=== PATIENT | female | born 1955 | race Caucasian/White ===

== ENCOUNTER → 2016-07-04 | Day surgery (SDC) | payer MEDICARE, MEDICAID ==
[~2016-07-04] VITALS: Ht 162.6 cm; Wt 90.0 kg
[~2016-07-04] MED LIST: ABIL5TAB6 PO; ALBU6.7H INH; AMLO5TAB2 PO; ARIP1TAB11 PO; ASPI1TAB69 PO; ATOR20TA15 PO; CALC667C PO; CIPR-9 PO; FLUO40CA PO; FLUT1SPR5 EACH NARE; FURO20TA PO; FURO40TA PO; HUMALOG SQ; HYDR-3535 PO; INSULIN HUMAN REGULAR 1,000 UNITS/10 ML VIAL SQ PRN; ISOS30TA15 PO; ISOS30TA3 PO; KLON2TAB PO; LACTATED RINGER'S 1000 ML IV SCH; LACTTAB8 PO; LANTUS2P SQ; LIPI20TA PO; LOPE7.5C PO; METF500T4 PO; METOPROLOL TARTRATE 25 MG TAB PO PRN; NOVOLOGSS SQ; ONDA1TAB16 PO; ONDA1TAB17 PO; PANT40TA3 PO; PERM5CRE11 TOPICAL; PHOS667C5 PO; RENATAB5 PO; SODIUM CHLORID 0.9% 500 ML IV SCH; SUCR1TAB PO; TOPA25TA8 PO; TOPI1TAB97 PO; VALT1TAB PO; ZOFR4TAB PO
[2016-07-04 09:32] VITALS: BP 137/65; PULSE 81; RESP 18; TEMP 97.9; O2SAT 97
[2016-07-04 10:05] LABS: AUTOMATED NEUTROPHIL # 11.4 TH/MM3 (1.8-7.7); BASOPHIL # 0.1 TH/MM3 (0-0.2); BASOPHIL % 0.5 % (0.0-2.0); EOSINOPHIL # 0.1 TH/MM3 (0-0.4); EOSINOPHIL % 0.6 % (0.0-4.0); HEMATOCRIT 38.5 % (35.0-46.0); HEMO FLAGS DIFF FINAL; LYMPH % 14.1 % (9.0-44.0); MEAN CELL VOLUME 93.6 FL (80.0-100.0); MEAN CORPUSCULAR HEMOGLOBIN 32.6 PG (27.0-34.0); MEAN CORPUSCULAR HGB CONC 34.8 % (32.0-36.0); MONO % 6.7 % (0.0-8.0); NEUT % 78.1 % (16.0-70.0); PLATELET COUNT 179 TH/MM3 (150-450); RED BLOOD COUNT 4.12 MIL/MM3 (4.00-5.30); RED CELL DISTRIBUTION WIDTH 14.3 % (11.6-17.2); WHITE BLOOD COUNT 14.5 TH/MM3 (4.0-11.0)
[2016-07-04 10:06] LABS: INTERNATIONAL NORMALIZED RATIO 0.9 RATIO; PROTHROMBIN TIME - PATIENT 10.2 SEC (9.8-11.6)
[2016-07-04 10:16] LABS: BACTERIA, URINE MANY /hpf; BLOOD, URINE MOD (NEG); COMMENT (UR) CULTURE INDICATED; CULTURE IF INDICATED CULTURE INDICATED; GLUCOSE,URINE TRACE mg/dL (NEG); HYALINE CAST, URINE 23 /lpf (RARE); KETONE, URINE NEG (NEG); MUCUS URINE MANY /lpf (OCC); NITRITE,URINE NEG (NEG); PH, URINE 5.5 (5.0-8.5); SQUAMOUS EPITHELIAL CELL URINE 21 /hpf (0-5); URINE COLOR YELLOW (YELLW/STRAW)
--- NOTE | 2016-07-04 10:23 | RADRPT ---
EXAM DATE/TIME: 07/04/2016 09:08 [facility] COMPARISON: No previous studies available for comparison. INDICATIONS: Pre-op Chest x-ray. Evaluate for pneumonia, pneumothorax, or communicable diseases. MEDICAL HISTORY: Diabetes mellitus type II. SURGICAL HISTORY: None. ENCOUNTER: Initial ACUITY: 1 day PAIN SCORE: 0/10 LOCATION: Chest FINDINGS: Dialysis catheter is in good position. Lungs are clear. Heart and pulmonary vascularity are normal. Portion of bony skeleton visualized unremarkable. CONCLUSION: 1. Dialysis catheter in good position. 2. Mild compensated cardiomegaly. Romario Pickering MD FACR on July 04, 2016 at 10:11 Board Certified Radiologist. This report was verified electronically.
[2016-07-04 10:26] LABS: BICARBONATE 27.7 MEQ/L (21.0-32.0)
[2016-07-04 10:36] LABS: POTASSIUM 4.6 MEQ/L (3.5-5.1)
== END | disposition home or self-care (01) ==
LOC: HCVO 08:20
PROVIDERS: ATTEND Surgery
DX: Z53.09 Procedure and treatment not carried out because of other contraindication (principal); I13.2 Hypertensive heart and chronic kidney disease with heart failure and with stage 5 chronic kidney disease, or end stage renal disease; I50.9 Heart failure, unspecified; N18.6 End stage renal disease; N39.0 Urinary tract infection, site not specified; Z16.20 Resistance to unspecified antibiotic; Z99.2 Dependence on renal dialysis
CPT/HCPCS: 71010; 80048; 81001; 82948; 85025; 85610; 87077; 87086; 87186; G0463; J1815; J7120; 99211

== ENCOUNTER → 2016-07-11 | Outpatient (CLI) | payer MEDICARE, MEDICAID ==
[~2016-07-11] MED LIST changes: -INSULIN HUMAN REGULAR 1,000 UNITS/10 ML VIAL SQ PRN; -LACTATED RINGER'S 1000 ML IV SCH; -METOPROLOL TARTRATE 25 MG TAB PO PRN; -SODIUM CHLORID 0.9% 500 ML IV SCH
[2016-07-11 10:37] LABS: HEMATOCRIT 37.2 % (35.0-46.0); MEAN CELL VOLUME 94.2 FL (80.0-100.0); MEAN CORPUSCULAR HEMOGLOBIN 31.9 PG (27.0-34.0); MEAN CORPUSCULAR HGB CONC 33.9 % (32.0-36.0); PLATELET COUNT 228 TH/MM3 (150-450); RED BLOOD COUNT 3.95 MIL/MM3 (4.00-5.30); REVIEW FLAG FINAL; WHITE BLOOD COUNT 11.7 TH/MM3 (4.0-11.0)
[2016-07-11 10:43] LABS: APTT (PATIENT) 30.1 SEC (24.3-30.1); PROTHROMBIN TIME - PATIENT 10.9 SEC (9.8-11.6)
[2016-07-11 11:07] LABS: BICARBONATE 35.8 MEQ/L (21.0-32.0); POTASSIUM 4.1 MEQ/L (3.5-5.1)
[2016-07-11 11:48] LABS: BACTERIA, URINE MOD /hpf; BLOOD, URINE TRACE (NEG); COMMENT (UR) CULTURE INDICATED; CULTURE IF INDICATED CULTURE INDICATED; GLUCOSE,URINE NEG (NEG); HYALINE CAST, URINE 15 /lpf (RARE); KETONE, URINE NEG (NEG); NITRITE,URINE NEG (NEG); SQUAMOUS EPITHELIAL CELL URINE 9 /hpf (0-5); URINE COLOR YELLOW (YELLW/STRAW)
--- NOTE | 2016-07-11 11:54 | RADRPT ---
EXAM DATE/TIME: 07/11/2016 11:33 [facility] COMPARISON: CHEST PA & LAT, April 16, 2016, 16:23. INDICATIONS : Evaluate for pneumonia, pneumothorax, and communicable diseases. Pre-op AV Fistula MEDICAL HISTORY : Diabetes mellitus type II. SURGICAL HISTORY : ENCOUNTER: Initial ACUITY: 1 day PAIN SCORE: 0/10 LOCATION: chest FINDINGS: PA and lateral views of the chest demonstrate the lungs to be symmetrically aerated without evidence of mass, infiltrate or effusion. Cardiomegaly slight interstitial prominence. The cardiomediastinal contours are unremarkable. Osseous structures are intact. CONCLUSION: Cardiomegaly and slight interstitial prominence. Blue Chen MD on July 11, 2016 at 11:52 Board Certified Radiologist. This report was verified electronically.
--- NOTE | 2016-07-12 19:49 | EKG ---
Date Performed: 07/11/2016 Time Performed: 10:27:32 PTAGE: 60 years EKG: Sinus rhythm LOW QRS VOLTAGE IN PRECORDIAL LEADS RIGHT BUNDLE BRANCH BLOCK Since previous tracing, no significant change noted ABNORMAL ECG PREVIOUS TRACING : 04/16/2016 15.35.08 DOCTOR: Casey Monteiro Interpretating Date/Time 07/12/2016 19:47:48
== END ==
LOC: CPRE 09:56
PROVIDERS: ATTEND Surgery
DX: Z01.810 Encounter for preprocedural cardiovascular examination (principal); Z01.811 Encounter for preprocedural respiratory examination; Z01.812 Encounter for preprocedural laboratory examination; N18.6 End stage renal disease
CPT/HCPCS: 36415; 71020; 80048; 81001; 85027; 85610; 85730; 87086; 93005

== ENCOUNTER 2016-08-11 06:25 | Day surgery (SDC) | payer MEDICARE, MEDICAID ==
[~2016-08-11] VITALS: Ht 162.6 cm; Wt 95.7 kg
[~2016-08-11 06:25] MED LIST changes: -ABIL5TAB6 PO; -ARIP1TAB11 PO; -CIPR-9 PO; -FURO20TA PO; -FURO40TA PO; -HUMALOG SQ; -ISOS30TA3 PO; -KLON2TAB PO; -LACTTAB8 PO; -LIPI20TA PO; -LOPE7.5C PO; -METF500T4 PO; -ONDA1TAB17 PO; -PANT40TA3 PO; -PERM5CRE11 TOPICAL; -PHOS667C5 PO; -TOPA25TA8 PO; -ZOFR4TAB PO
[2016-08-11] MEDS ORDERED: INSULIN HUMAN REGULAR 1,000 UNITS/10 ML VIAL SQ PRN (08:30)
[2016-08-11] MEDS ORDERED: POVIDONE IODINE 5% (ANTISEPSIS KIT) 4 APPLICATIONS EACH NARE PRN (08:30)
[2016-08-11] MEDS ORDERED: METOPROLOL TARTRATE 25 MG TAB PO PRN (08:30)
[2016-08-11] MEDS ORDERED: CHLORHEXIDINE GLUCONATE 2 % 1 PACK (2 CLOTHS) TOPICAL PRN (08:30)
[2016-08-11] MEDS ORDERED: LACTATED RINGER'S 1000 ML IV PRN (08:30)
[2016-08-11] MEDS ORDERED: SODIUM CHLORID 0.9% 500 ML IV PRN (08:30)
--- NOTE | 2016-08-11 08:52 | RADRPT ---
EXAM DATE/TIME: 08/11/2016 09:31 [facility] COMPARISON: CHEST PA & LAT, July 11, 2016, 11:33. INDICATIONS : Evaluate for pneumonia, pneumothorax, or communicable disease. Pre op AV fistula MEDICAL HISTORY : Diabetes mellitus type II. SURGICAL HISTORY : Port for diaylsis ENCOUNTER: Initial ACUITY: 1 day PAIN SCORE: 0/10 LOCATION: Bilateral chest FINDINGS: The heart is mildly enlarged. The lungs are clear. The patient dialysis catheters in good position. T he bony structures are grossly intact. CONCLUSION: 1. Cardiomegaly. Dialysis catheter in good position. Lungs are clear. Vito Pickering MD on August 11, 2016 at 8:50 Board Certified Radiologist. This report was verified electronically.
[2016-08-11] MEDS ORDERED: Hemodialysis Vas Acc Cath PRN Heparin 1000 unit/ml Flush IV FLUSH (09:45)
[2016-08-11] MEDS ORDERED: Hemodialysis Vas Access Cath PRN NS Lock Flush IV FLUSH (09:45)
[2016-08-11 09:47] VITALS: BP 136/64; PULSE 57; RESP 20; TEMP 97.8; O2SAT 95
[2016-08-11 09:55] LABS: BASOPHIL # 0.1 TH/MM3 (0-0.2); BASOPHIL % 0.6 % (0.0-2.0); EOSINOPHIL # 0.2 TH/MM3 (0-0.4); EOSINOPHIL % 1.7 % (0.0-4.0); HEMATOCRIT 32.4 % (35.0-46.0); HEMO FLAGS DIFF FINAL; LYMPH % 22.7 % (9.0-44.0); LYMPHOCYTE # 2.3 TH/MM3 (1.0-4.8); MEAN CELL VOLUME 92.4 FL (80.0-100.0); MEAN CORPUSCULAR HEMOGLOBIN 32.5 PG (27.0-34.0); MEAN CORPUSCULAR HGB CONC 35.1 % (32.0-36.0); MONO % 6.7 % (0.0-8.0); NEUT % 68.3 % (16.0-70.0); PLATELET COUNT 187 TH/MM3 (150-450); RED BLOOD COUNT 3.51 MIL/MM3 (4.00-5.30); RED CELL DISTRIBUTION WIDTH 14.5 % (11.6-17.2); WHITE BLOOD COUNT 10.2 TH/MM3 (4.0-11.0)
[2016-08-11 10:06] LABS: INTERNATIONAL NORMALIZED RATIO 0.9 RATIO; PROTHROMBIN TIME - PATIENT 10.1 SEC (9.8-11.6)
[2016-08-11 10:17] LABS: BICARBONATE 32.8 MEQ/L (21.0-32.0)
[2016-08-11 10:18] LABS: BACTERIA, URINE MOD /hpf; BLOOD, URINE TRACE (NEG); GLUCOSE,URINE NEG (NEG); HYALINE CAST, URINE 2 /lpf (RARE); KETONE, URINE NEG (NEG); NITRITE,URINE NEG (NEG); SQUAMOUS EPITHELIAL CELL URINE 5 /hpf (0-5); URINE COLOR LIGHT-YELLOW (YELLW/STRAW)
[2016-08-11 10:19] LABS: COMMENT (UR) CULTURE INDICATED; CULTURE IF INDICATED CULTURE INDICATED
[2016-08-11 10:24] LABS: POTASSIUM 2.9 MEQ/L (3.5-5.1)
[2016-08-11] MEDS ORDERED: POTASSIUM CHLOR 20 MEQ PREMIX 100 ML IV SCH (12:00)
[2016-08-11] MEDS ORDERED: HEPARIN SODIUM - IV 10,000 UNITS/10 ML VIAL ONE (13:45)
[2016-08-11 14:46] LABS: BICARBONATE 33.2 MEQ/L (21.0-32.0); POTASSIUM 3.6 MEQ/L (3.5-5.1)
[2016-08-13] MEDS ORDERED: PERM5CRE11 TOPICAL (07:49)
[2016-08-18] MEDS ORDERED: ARIP1TAB11 PO (06:15)
[2016-08-18] MEDS ORDERED: FURO40TA PO (11:00)
[2016-08-18] MEDS ORDERED: FURO20TA PO (11:00)
[2016-09-26] MEDS ORDERED: HUMALOG SQ (11:52)
== END 2016-08-18 09:44 | disposition home or self-care (01) ==
LOC: HSDC 06:25
PROVIDERS: ATTEND Surgery
DX: N18.6 End stage renal disease (principal); I12.0 Hypertensive chronic kidney disease with stage 5 chronic kidney disease or end stage renal disease; E11.9 Type 2 diabetes mellitus without complications; Z01.818 Encounter for other preprocedural examination; Z53.09 Procedure and treatment not carried out because of other contraindication
CPT/HCPCS: 71010; 80048; 81001; 82948; 85025; 85610; 87086; G0463; J1644; J3480; J7040; 99211

== ENCOUNTER 2016-08-13 07:25 | Emergency (ER) | payer MEDICARE, MEDICAID ==
[~2016-08-13] VITALS: Ht 162.6 cm; Wt 88.0 kg
[2016-08-13 07:35] VITALS: BP 144/66; PULSE 66; RESP 24; TEMP 97.8; O2SAT 98
[2016-08-13] MEDS ORDERED: PERM5CRE11 TOPICAL (07:49)
--- NOTE | 2016-08-13 07:49 | PD ---
HPI Chief Complaint: Skin Problem Time Seen by Provider: 07:44 Travel History International Travel<30 days: No Contact w/Intl Traveler<30days: No Traveled to known affect area: No History of Present Illness HPI 60-year-old female presents to the emergency department with an itchy rash to her bilateral upper extremities, upper back, abdomen, right breast 2 days. She did start using a new body soap from [employer] a few days ago and has now stopped using it with no resolution of symptoms. She also states her daughter has dogs and sleep in her bed and she doesn't know if maybe she is being bit by fleas or other bugs. No one else in the house has a rash like her. She denies fever, chills, nausea, vomiting. She took Benadryl last night with good relief of itching. No known aggravating factors. Allergies to latex, penicillin, sulfa. History of diabetes. No other modifying factors or associated signs and symptoms. PFSH Past Medical History Cancer: No Cardiovascular Problems: Yes (PVD, CHF, chol) Diabetes: Yes Endocrine: No Genitourinary: Yes (INCONTINENCE) Hepatitis: No Hiatal Hernia: No Immune Disorder: No Musculoskeletal: Yes (arthritis right leg and bilat hands) Neurologic: Yes (seizures-last one 10 yrs prior) Psychiatric: Yes (anxiety, depression) Reproductive: No Respiratory: No (COPD, asthma) Thyroid Disease: No ?: Not Past Surgical History Abdominal Surgery: No AICD: No Body Medical Devices: right upper chest port Cardiac Surgery: No (radial cath done several years ago-negative) Ear Surgery: No Endocrine Surgery: No Eye Surgery: Yes (GROWTH REMOVED A CHILD) Genitourinary Surgery: No Gynecologic Surgery: No Joint Replacement: No Oral Surgery: Yes (TONSILECTOMY) Pacemaker: No Thoracic Surgery: Yes (right upper chest port-dialysis, abscess removed from L breast) Social History Tobacco Use: No Substance Use: No Allergies-Medications (Allergen,Severity, Reaction): Coded Allergies: Latex (Verified Allergy, Severe, rash, 08/11/16) Penicillin (Verified Allergy, Severe, Rash, 08/11/16) Sulfa (Verified Allergy, Severe, itching, vomiting, 08/11/16) Reported Meds & Prescriptions Reported Meds & Active Scripts Active Elimite Topical (Permethrin) 5% Cream 1 Applic TOPICAL ONCE Reported Valtrex (Valacyclovir HCl) 1 Gm Tab 1,000 Mg PO HS Lantus Inj (Insulin Glargine) 1,000 Unit/10 Ml Vial 30 Units SQ HS Topiramate 25 Mg Tab 25 Mg PO DAILY Sucralfate 1 Gm Tab 1 Gm PO QID on empty stomach Aline-Yvonne (B-Complex W/ C & Folic Acid) 1 Tab 1 Tab PO DAILY Proventil Hfa 6.7 GM Inh (Albuterol Sulfate) 90 Mcg/Act Aer 2 Puff INH Q6H PRN Ondansetron (Ondansetron HCl) 4 Mg Tab 8 Mg PO Q6HR PRN Novolog Inj (Insulin Aspart) 100 Unit/Ml Inj 2-12 Units SQ ACHS PER SLIDING SCALE Isosorbide Dinitrate 30 Mg Tab 30 Mg PO DAILY Lortab (Hydrocodone-Acetaminophen) 10-325 Mg Tab 1 Tab PO Q8HR PRN Fluoxetine (Fluoxetine HCl) 40 Mg Cap 40 Cap PO DAILY Flonase Nasal [place] (Fluticasone Nasal [place]) 50 Mcg/Act [place] 50 Mcg EACH NARE DAILY Calcium Acetate (Calcium Acetate (Phosphate Bin) 667 Mg Cap 667 Mg PO WITH MEALS Atorvastatin (Atorvastatin Calcium) 20 Mg Tab 20 Mg PO HS Aspirin 81 Mg Tabdr 81 Mg PO DAILY Amlodipine (Amlodipine Besylate) 5 Mg Tab 5 Mg PO DAILY Review of Systems Except as stated in HPI: all other systems reviewed are Neg Physical Exam Narrative GENERAL: Well-nourished, well-developed female patient, in no acute distress; afebrile, nontoxic-appearing SKIN: Warm and dry. Generalized erythremic pimple-like rash to abdomen, upper back, bilateral upper extremity; some areas appear excoriated. No areas with cellulitic process noted. [id number] noted to the right chest. HEAD: Atraumatic. Normocephalic. EYES: Pupils equal and round. No scleral icterus. No injection or drainage. ENT: Mucosa pink and moist. Airway patent. NECK: Trachea midline. CARDIOVASCULAR: Regular rate and rhythm. No murmur appreciated.. RESPIRATORY: No accessory muscle use. Breath sounds clear and equal bilaterally. No retractions or tachypnea. GASTROINTESTINAL: Obese. MUSCULOSKELETAL: No obvious deformities. No clubbing. No cyanosis. No edema. NEUROLOGICAL: Awake and alert. Oriented 3. No obvious cranial nerve deficits. Motor grossly within normal limits. Normal speech. PSYCHIATRIC: Appropriate mood and affect; insight and judgment normal. Data Data Last Documented VS Vital Signs Date Time Temp Pulse Resp B/P Pulse Ox O2 Delivery O2 Flow Rate FiO2 08/13/16 07:35 97.8 66 24 144/66 98 Room Air MDM Medical Decision Making Medical Screen Exam Complete: Yes Emergency Medical Condition: Yes Medical Record Reviewed: Yes Differential Diagnosis Scabies, flea bites, contact dermatitis, hives Narrative Course 60-year-old female with itchy rash to bilateral upper extremities, right breast , abdomen, upper back. Rash is nonspecific but is consistent with a possible scabies rash. Patient is afebrile and nontoxic-appearing. She denies fever, chills, nausea, vomiting. She did start using a new body soap either day. I will prescribe Elimite cream for possible scabies rash. Instructed patient take Benadryl [id number] as directed and as needed for itch./Rash. Instructed patient to follow up with dermatology as needed. Patient verbalizes understanding and agreement with treatment plan. Patient is medically cleared and stable for discharge. Discussed reasons to return to the emergency department. Instructed patient to follow up with primary care provider. Patient agrees with treatment plan. The patients vital signs are stable and the patient is stable for outpatient follow-up and treatment. Patient discharged home, stable and in no acute distress. Diagnosis Primary Impression: Rash and nonspecific skin eruption Referrals: Head Librarian Primary Care Physician Patient Instructions: Acute Rash (ED), General Instructions, Scabies (ED) Additional Instructions: Elimite cream as directed; repeat in one week as needed Soaking in cool water or apply cool, wet washcloths to irritated areas to minimize itching Apply anti-itch creams, such as calamine lotion, to relieve pain and itching as needed Cocl-cwv-opgocrk antihistamines as needed and as directed to relieve allergic symptoms caused by scabies Wash all pillows, linens, blankets, etc. in hot water and dry in hot dryer Bag and all unwashable linens, [place] stuffed animals, etc. in a tightly sealed garbage bag for up to 2 weeks Follow-up with nuclear medical technologist Follow-up with primary care provider Return to the emergency department immediately with worsening of symptoms Med/Other Pt SpecificInfo: Prescription(s) given Scripts Permethrin Topical (Elimite Topical)5% Cream1 Applic TOPICAL ONCE #1 TUBE Ref 1 Prov:Barbra Woodruff 08/13/16 Disposition: 01 DISCHARGE HOME Condition: Stable Barbra Woodruff Aug 13, 2016 07:49
[2016-08-13] MEDS ORDERED: diphenhydrAMINE HCL 50 MG CAP PO ONE (08:15)
[2016-09-26] MEDS ORDERED: HUMALOG SQ (11:52)
== END 2016-08-13 08:30 | disposition home or self-care (01) ==
LOC: NEPK 07:25
DX: R21 Rash and other nonspecific skin eruption (principal); L29.9 Pruritus, unspecified; E11.9 Type 2 diabetes mellitus without complications; Z79.4 Long term (current) use of insulin; Z86.79 Personal history of other diseases of the circulatory system; Z87.448 Personal history of other diseases of urinary system; Z87.39 Personal history of other diseases of the musculoskeletal system and connective tissue; Z86.69 Personal history of other diseases of the nervous system and sense organs
CPT/HCPCS: 99282

== ENCOUNTER 2016-08-18 05:07 | Day surgery (SDC) | payer MEDICARE, MEDICAID ==
[~2016-08-18] VITALS: Ht 154.9 cm; Wt 93.2 kg
[~2016-08-18 05:07] MED LIST changes: +PERM5CRE11 TOPICAL
[2016-08-18 05:51] VITALS: BP 129/79; PULSE 61; RESP 18; TEMP 97.9; O2SAT 93
[2016-08-18 05:54] LABS: AUTOMATED NEUTROPHIL # 8.4 TH/MM3 (1.8-7.7); BASOPHIL % 0.3 % (0.0-2.0); EOSINOPHIL # 0.2 TH/MM3 (0-0.4); EOSINOPHIL % 1.5 % (0.0-4.0); HEMATOCRIT 33.1 % (35.0-46.0); HEMO FLAGS DIFF FINAL; LYMPH % 20.3 % (9.0-44.0); LYMPHOCYTE # 2.4 TH/MM3 (1.0-4.8); MEAN CELL VOLUME 93.5 FL (80.0-100.0); MEAN CORPUSCULAR HEMOGLOBIN 32.2 PG (27.0-34.0); MEAN CORPUSCULAR HGB CONC 34.5 % (32.0-36.0); MONO % 6.6 % (0.0-8.0); NEUT % 71.3 % (16.0-70.0); PLATELET COUNT 193 TH/MM3 (150-450); RED BLOOD COUNT 3.54 MIL/MM3 (4.00-5.30); RED CELL DISTRIBUTION WIDTH 14.5 % (11.6-17.2); WHITE BLOOD COUNT 11.8 TH/MM3 (4.0-11.0)
[2016-08-18 06:06] LABS: BICARBONATE 35.6 MEQ/L (21.0-32.0); POTASSIUM 3.6 MEQ/L (3.5-5.1)
[2016-08-18] MEDS ORDERED: ARIP1TAB11 PO (06:15)
[2016-08-18] MEDS ORDERED: FURO40TA PO (11:00)
[2016-08-18] MEDS ORDERED: FURO20TA PO (11:00)
[2016-09-26] MEDS ORDERED: HUMALOG SQ (11:52)
== END 2016-08-18 10:00 | disposition home or self-care (01) ==
LOC: HDIC 05:07 → HDOC 05:07
PROVIDERS: ATTEND Surgery
DX: N18.6 End stage renal disease (principal); I12.0 Hypertensive chronic kidney disease with stage 5 chronic kidney disease or end stage renal disease; J44.9 Chronic obstructive pulmonary disease, unspecified; I73.9 Peripheral vascular disease, unspecified; E11.22 Type 2 diabetes mellitus with diabetic chronic kidney disease; Z79.4 Long term (current) use of insulin; Z53.09 Procedure and treatment not carried out because of other contraindication
CPT/HCPCS: 80048; 85025

== ENCOUNTER 2016-08-18 09:56 | Inpatient (IN) | payer MEDICARE, MEDICAID ==
[~2016-08-18] VITALS: Ht 162.6 cm; Wt 107.8 kg
[~2016-08-18 09:56] MED LIST changes: +ARIP1TAB11 PO
[2016-08-18 09:59] VITALS: BP 136/60; PULSE 62; RESP 17; TEMP 98.5; O2SAT 96
[2016-08-18 10:07] VITALS: BP 130/62; PULSE 63; RESP 19; TEMP 97.8; O2SAT 92
[2016-08-18 10:12] VITALS: BP 130/62; PULSE 63; RESP 19; TEMP 97.9; O2SAT 93
--- NOTE | 2016-08-18 10:47 | RADRPT ---
EXAM DATE/TIME: 08/18/2016 10:33 [facility] COMPARISON: No previous studies available for comparison. INDICATIONS : Left foot pain after was injury during wheelchair transportation. MEDICAL HISTORY : Hypertension. Chronic obstructive pulmonary disease. Diabetes mellitus type II. Asthma. Smoker. C HF. SURGICAL HISTORY : None. ENCOUNTER: Initial ACUITY: 1 month PAIN SCORE: 10/10 LOCATION: Left entire foot. FINDINGS: There is diffuse decreased bone mineralization. No fractures are seen. There is periosteal reaction a long the calcaneus and findings suggest possible heel cutaneous ulcer. The possibility of osteomyelit is is not excluded. CONCLUSION: Findings are concerning for possible osteomyelitis of the calcaneus with overlying ulceration. Micha Tobar MD on August 18, 2016 at 10:45 Board Certified Radiologist. This report was verified electronically.
[2016-08-18] MEDS ORDERED: FURO20TA PO (11:00)
[2016-08-18] MEDS ORDERED: FURO40TA PO (11:00)
--- NOTE | 2016-08-18 11:03 | PD ---
HPI Chief Complaint: Complaint Time Seen by Provider: 10:02 Travel History International Travel<30 days: No Contact w/Intl Traveler<30days: No Traveled to known affect area: No History of Present Illness HPI The patient's 60 years old. She arrives stating that she was on dialysis week ago. She reports since then she has become quite swollen so much so that she cannot fit into her wedding dress. Essie has not been helping her produce urine. She complains of swelling in the legs evidently worse over the past few days. She also complains of pain in the right foot. She has an open wound on the plantar aspect of the L foot. It's constant and worse with palpation. She' s had no fever. PFSH Past Medical History Cancer: Yes Cardiovascular Problems: Yes (PVD, CHF, chol) Diabetes: Yes Endocrine: No Gastrointestinal Disorders: No (ULCER, GERD) Genitourinary: Yes (INCONTINENCE) Hepatitis: No Hiatal Hernia: No Hypertension: Yes (on meds) Immune Disorder: No Musculoskeletal: Yes (arthritis right leg and bilat hands) Neurologic: Yes (seizures-last one 10 yrs prior) Psychiatric: Yes (anxiety, depression) Reproductive: No Respiratory: No (COPD, asthma) Thyroid Disease: No Past Surgical History Abdominal Surgery: No AICD: No Body Medical Devices: right upper chest port Cardiac Surgery: No (radial cath done several years ago-negative) Ear Surgery: No Endocrine Surgery: No Eye Surgery: Yes (GROWTH REMOVED A CHILD) Genitourinary Surgery: No Gynecologic Surgery: No Joint Replacement: No Oral Surgery: Yes (TONSILECTOMY) Pacemaker: No Thoracic Surgery: Yes (right upper chest port-dialysis, abscess removed from L breast) Social History Alcohol Use: No Tobacco Use: Yes Substance Use: No Allergies-Medications (Allergen,Severity, Reaction): Coded Allergies: Latex (Verified Allergy, Severe, rash, 08/11/16) Penicillin (Verified Allergy, Severe, Rash, 08/11/16) Sulfa (Verified Allergy, Severe, itching, vomiting, 08/11/16) Reported Meds & Prescriptions Reported Meds & Active Scripts Active Reported Furosemide 40 Mg Tab 40 Mg PO BID Furosemide 20 Mg Tab 20 Mg PO BID Aripiprazole 5 Mg Tab 5 Mg PO DAILY Valtrex (Valacyclovir HCl) 1 Gm Tab 1,000 Mg PO HS Topiramate 25 Mg Tab 25 Mg PO DAILY Sucralfate 1 Gm Tab 1 Gm PO QID on empty stomach Proventil Hfa 6.7 GM Inh (Albuterol Sulfate) 90 Mcg/Act Aer 2 Puff INH Q6H PRN Ondansetron (Ondansetron HCl) 4 Mg Tab 8 Mg PO Q6HR PRN Novolog Inj (Insulin Aspart) 100 Unit/Ml Inj 2-12 Units SQ ACHS PER SLIDING SCALE Isosorbide Dinitrate 30 Mg Tab 30 Mg PO DAILY Lortab (Hydrocodone-Acetaminophen) 10-325 Mg Tab 1 Tab PO Q8HR PRN Aspirin 81 Mg Tabdr 81 Mg PO DAILY Amlodipine (Amlodipine Besylate) 5 Mg Tab 5 Mg PO DAILY Review of Systems Except as stated in HPI: all other systems reviewed are Neg General / Constitutional: No: Fever Skin: Positive Rash, Positive Lesions Physical Exam Narrative GENERAL: 60-year-old female well-nourished well-developed no acute distress SKIN: Focused skin assessment warm/dry. Approximate 5 cm lesion about the plantar aspect of the left fiber machine tender with minimal discharge and surrounding erythema. HEAD: Atraumatic. Normocephalic. EYES: Pupils equal and round. No scleral icterus. No injection or drainage. ENT: No nasal bleeding or discharge. Mucous membranes pink and moist. NECK: Trachea midline. No JVD. CARDIOVASCULAR: Regular rate and rhythm. No murmur appreciated. RESPIRATORY: No accessory muscle use. Clear to auscultation. Breath sounds equal bilaterally. GASTROINTESTINAL: Abdomen soft, non-tender, nondistended. Hepatic and splenic margins not palpable. MUSCULOSKELETAL: No obvious deformities. No clubbing. No cyanosis. 1+ pitting edema bilateral lower extremities. NEUROLOGICAL: Awake and alert. No obvious cranial nerve deficits. Motor grossly within normal limits. Normal speech. PSYCHIATRIC: Appropriate mood and affect; insight and judgment normal. Data Data Last Documented VS Vital Signs Date Time Temp Pulse Resp B/P Pulse Ox O2 Delivery O2 Flow Rate FiO2 08/18/16 10:12 97.9 63 19 130/62 93 Room Air VSS Orders Foot, Complete ([id number]) (08/18/16 ) Blood Culture (08/18/16 11:01) Wound Culture And Gram Stain (08/18/16 11:01) Iv Access Insert/Monitor (08/18/16 11:01) Clindamycin Inj (Cleocin Inj) (08/18/16 11:15) Admit Order (Ed Use Only) (08/18/16 11:12) MDM Medical Decision Making Medical Screen Exam Complete: Yes Emergency Medical Condition: Yes Medical Record Reviewed: Yes Differential Diagnosis Renal insufficiency, renal failure, anemia, osteomyelitis, cellulitis Narrative Course WBC from 540AM WBC 11.8 HGB 11.4 HCT 33.1 PLT 193 BMP from 540AM BUN 34 Cr 1.59 Glucose 67 Last 24 hours Impressions Foot X-Ray 08/18/16 0000 Signed Impressions: Service Date/Time: Thursday, August 18, 2016 10:33 - CONCLUSION: Findings are concerning for possible osteomyelitis of the calcaneus with overlying ulceration. Micha Tobar MD The patient will be admitted for IV antibiotics due to possible osteomyelitis of the left foot. d/w Dr Mckinney. Diagnosis Primary Impression: Osteomyelitis of foot Qualified Code: M86.8X7 - Other osteomyelitis of left foot Admitting Information Admitting Physician Requests: Admit Vito Patel MD Aug 18, 2016 11:03
[2016-08-18] MEDS ORDERED: CLINDAMYCIN INJ 900 MG in SODIUM CHLORIDE 0.9% INJ 100 ML IV ONE (11:15)
[2016-08-18] MEDS ORDERED: VANCOMYCIN INJ 1,750 MG in SODIUM CHLORID 0.9% 500 ML INJ 500 ML IV ONE (12:15)
[2016-08-18 13:34] VITALS: BP 112/59; PULSE 76; RESP 19; O2SAT 95
--- NOTE | 2016-08-18 13:34 | HHI.HP ---
[facility] Service Family Medicine Primary Care Physician Amber Rodriguez MD Admission Diagnosis L Foot Osteomyelitis Diagnoses: Chief Complaint: wound of left foot International Travel<30 Days: No Contact w/Intl Traveler<30days: No Known Affected Area: No History of Present Illness Patient is a 60 year old female with history of ESRD and diabetes who initially presented to ED for evaluation of generalized edema and now admitted for possible left calcaneus osteomyelitis. Patient is a poor historian. States that she has been getting dialysis at [facility]; however they told her that she would not need dialysis anymore. Last HD was on ThursdayAugust 12. However she feels like she is "blowing up again" secondary to fluid retention. Endorses worsening lower extremity edema. Work up in the ED showed that her renal function is actually stable with creatinine of 1.59. Electrolytes were within normal limits ; however it was noted that patient has a large ulcer on her left heel. X-ray was obtained and significant for possible osteomyelitis of calcaneus. Patient reports that ulcer has been there for 2 years. She follows up with Dr. Sun in [place] for wound care and has an appointment on for her first hyperbaric chamber treatment. States that ulcer looks better compared to the past since she has been going to wound care. Denies active drainage or bleeding from the ulcer. Pain in her heel is controlled. No associated symptoms such as fever, chills, LE redness, numbness, or weakness. She is able to ambulates around with a cane. Review of Systems Constitutional: DENIES: Fever, Chills, Change in appetite Respiratory: DENIES: Wheezing, Sputum production, Shortness of breath Cardiovascular: COMPLAINS OF: Lower Extremity Edema, DENIES: Chest pain, Palpitations, Syncope Gastrointestinal: DENIES: Black stools, Bloody stools, Diarrhea, Nausea, Vomiting Integumentary: COMPLAINS OF: Rash Past Family Social History Past Medical History PVD DM ESRD CHF last echo was a few months ago but does not recall what the EF was HLD GERD HTN Back arthritis Seizure 10 years ago COPD Anxiety Depression Past Surgical History Tonsillectomy AV fistula L. Breast abscess I&D Reported Medications Furosemide 40 Mg Tab 40 Mg PO BID Furosemide 20 Mg Tab 20 Mg PO BID Aripiprazole 5 Mg Tab 5 Mg PO DAILY Valtrex (Valacyclovir HCl) 1 Gm Tab 1,000 Mg PO HS Topiramate 25 Mg Tab 25 Mg PO DAILY Sucralfate 1 Gm Tab 1 Gm PO QID on empty stomach Proventil Hfa 6.7 GM Inh (Albuterol Sulfate) 90 Mcg/Act Aer 2 Puff INH Q6H PRN Ondansetron (Ondansetron HCl) 4 Mg Tab 8 Mg PO Q6HR PRN Novolog Inj (Insulin Aspart) 100 Unit/Ml Inj 2-12 Units SQ ACHS PER SLIDING SCALE Levemir but unsure about the dose Isosorbide Dinitrate 30 Mg Tab 30 Mg PO DAILY Lortab (Hydrocodone-Acetaminophen) 10-325 Mg Tab 1 Tab PO Q8HR PRN Aspirin 81 Mg Tabdr 81 Mg PO DAILY Amlodipine (Amlodipine Besylate) 5 Mg Tab 5 Mg PO DAILY Allergies: Coded Allergies: Latex (Verified Allergy, Severe, rash, 08/11/16) Penicillin (Verified Allergy, Severe, Rash, 08/11/16) Sulfa (Verified Allergy, Severe, itching, vomiting, 08/11/16) Family History Alzheimer Colon cancer Kidney disease Social History Smokes 5 cigarettes per day since age 15 Denies EtOH or illicit drug use On disability. Lives with niece and nephew in [place] Physical Exam Vital Signs Vital Signs Date Time Temp Pulse Resp B/P Pulse Ox O2 Delivery O2 Flow Rate FiO2 08/18/16 10:12 97.9 63 19 130/62 93 Room Air 08/18/16 10:12 61 08/18/16 10:07 97.8 63 19 130/62 92 08/18/16 09:59 98.5 62 17 136/60 96 Room Air Physical Exam GENERAL: This is a well-nourished, well-developed obese female, in no apparent distress. Appears comfortable lying in bed. SKIN: Diffuse papular rash on upper abdomen. HEAD: Atraumatic. Normocephalic. EYES: Pupils equal round and reactive. Extraocular motions intact. No scleral icterus. No injection or drainage. ENT: Nose without bleeding, purulent drainage or septal hematoma. Throat without erythema, tonsillar hypertrophy or exudate. Uvula midline. Airway patent. NECK: Trachea midline. No JVD or lymphadenopathy. Supple. CARDIOVASCULAR: Regular rate and rhythm without murmurs, gallops, or rubs. RESPIRATORY: Clear to auscultation. Breath sounds equal bilaterally. No wheezes , rales, or rhonchi. GASTROINTESTINAL: Abdomen soft, non-tender, nondistended. No hepato-splenomegaly , or palpable masses. No guarding. MUSCULOSKELETAL: Large 5 x 7cm swallow ulceration on left heel with two small 1 cm deeper ulcers at the inferior aspect of heel. No active drainage or bleeding. Sensation and motor grossly intact. NEUROLOGICAL: Awake and alert. Cranial nerves II through XII intact. Five out of 5 muscle strength in all muscle groups. Normal speech. Laboratory Date/Time Procedure Status Source Growth 08/18/16 12:36 Gram Stain Received Wound Foot Pending 08/18/16 12:36 Wound Culture Received Wound Foot Pending 08/18/16 12:10 Aerobic Blood Culture Received Blood Peripheral Pending 08/18/16 12:10 Anaerobic Blood Culture Received Blood Peripheral Pending Imaging Foot X-Ray 08/18/16 0000 Signed Impressions: Service Date/Time: Thursday, August 18, 2016 10:33 - CONCLUSION: Findings are concerning for possible osteomyelitis of the calcaneus with overlying ulceration. Micha Tobar MD Septic Shock Reassessment Heart: Regular rate and rhythm Lungs: Clear Skin: Warm Capillary Refill: <2 seconds Assessment and Plan Assessment and Plan Patient is a 60 year old female with history of ESRD and diabetes who is admitted for evaluation of osteomyelitis of left calcaneus. Code Status FULL Discussed Condition With w/d/w Dr. Braun and medicine team Problem List: (1) Osteomyelitis of foot Status: Acute Plan: Patient with history of chronic left heel wound x 2 years. Has been seeing Dr. Sun in [place] for wound care. Reports that she was supposed to start hyperbaric chamber tomorrow. X-ray in ED concerning for possible osteomyelitis of calcaneus, thus medicine team was called to admit patient for IV antibiotics and further evaluation. Mild leukocytosis of 11.8 with slight left shift. Otherwise VSSAF. -MRI of left foot -ESR pending -Patient given Clindamycin and Vancomycin in ED. Will hold off on continue antibiotics until evaluation from ID and podiatry -Wound and blood cultures pending -Pain control with Lortab 10mg Q8hrs and Morphine 2mg Q3hr prn (2) ESRD (end stage renal disease) on dialysis Status: Acute Plan: BUN/creatinine 34/1.59 on admission. Patient reports history of ESRD on hemodialysis. Last HD was last Thursday; however reports that her freight brake operator told her she did not need dialysis anymore. -Avoid nephrotoxic agents -Renally dose medications -Monitor renal function -Consider nephrology consult if renal function worsens (3) Hypertension Status: Chronic Plan: BP stable. Continue home antihypertensives (4) COPD (chronic obstructive pulmonary disease) Status: Chronic Plan: No evidence of exacerbation. O2 stable on room air. Lung exam unremarkable. -Abluterol Q4h prn -Smoking cessation counseling provided (5) Diabetes Status: Chronic Plan: History of T2DM; states that she is on Levemir (unsure about the dose) and Novolog sliding scale at home. Serum glucose on admission 67. Reports that her glucoses have been running low for the past couple of weeks. -Accuchecks -Start D5 1/2 NS at 75cc/hr since patient will be NPO -SSI prn (6) CHF (congestive heart failure) Status: Chronic Plan: Patient reports history of CHF; had ECHO several months ago but unsure what her EF was. No evidence of exacerbation at this time. -Continue to monitor -Caution with IVFs -Continue home dose of Lasix 60mg po BID (7) Nutrition, metabolism, and development symptoms Status: Acute Plan: Diet: NPO. Advance to diabetic diet Fluid: D5 1/2 NS at 75cc/hr given glucose of 67 on admission Electrolytes: WNL. Continue to monitor (8) Prophylactic measure Status: Acute Plan: SCDs bilaterally Hold off on chemical anticoagulation until podiatry's evaluation. May need debridement and possible biopsy Physician Certification 2 Midnight Certification Type: Admission for Inpatient Services Order for Inpatient Services The services are ordered in accordance with Medicare regulations or non- Medicare payer requirements, as applicable. In the case of services not specified as inpatient-only, they are appropriately provided as inpatient services in accordance with the 2-midnight benchmark. Estimated LOS (days): 4 4 days is the estimated time the patient will need to remain in the hospital, assuming treatment plan goals are met and no additional complications. Post-Hospital Plan: Not yet determined Problem Qualifiers (1) Osteomyelitis of foot: Qualified Code: M86.8X7 - Other osteomyelitis of left foot Cheyenne Crockett MD R3 Aug 18, 2016 13:33
[2016-08-18] MEDS ORDERED: SODIUM CHLOR 0.45% 1000 ML INJ 1,000 ML IV SCH (14:14)
[2016-08-18] MEDS ORDERED: ONDANSETRON HCL 4 MG/2 ML VIAL IVP PRN (14:15)
[2016-08-18] MEDS ORDERED: NALOXONE HCL 0.4 MG/ML AMP IV PRN (14:15)
[2016-08-18] MEDS ORDERED: SODIUM CHLORIDE 0.9% FLUSH 10 ML FLUSH IV FLUSH PRN (14:15)
[2016-08-18] MEDS ORDERED: BISACODYL 10 MG SUPP RECTAL PRN (14:15)
[2016-08-18] MEDS ORDERED: ACETAMINOPHEN 325 MG TAB PO PRN (14:15)
[2016-08-18] MEDS ORDERED: DEXTROSE 50% IN WATER 50 ML VIAL(D50) IV PUSH PRN (14:30)
[2016-08-18] MEDS ORDERED: DEXT 5%-NACL 0.45% 1000 ML INJ 1,000 ML IV SCH (14:30)
[2016-08-18] MEDS ORDERED: GLUCAGON 1 MG/ML VIAL OTHER PRN (14:30)
[2016-08-18] MEDS ORDERED: MORPHINE SULFATE 4 MG/ML INJ IV PUSH PRN (14:30)
[2016-08-18] MEDS ORDERED: RESP: ALBUTEROL 2.5 MG/3 ML NEB (PRN) NEB (14:45)
[2016-08-18] MEDS: INSULIN ASPART SUPPLEMENTAL SCALE SQ SCH ×2 (16:00→21:00)
[2016-08-18 16:37] VITALS: BP 123/58; PULSE 63; RESP 19; O2SAT 94
[2016-08-18] MEDS ORDERED: GADOBENATE DIM PF 529 MG/ML 20ML VIAL (for RAD MRI) IV ONE (18:47)
--- NOTE | 2016-08-18 19:24 | RADRPT ---
EXAM DATE/TIME: 08/18/2016 18:17 [facility] COMPARISON: FOOT LEFT COMPLETE ([id number]), August 18, 2016, 10:33. INDICATIONS : Osteomyelitis. Ulcer on heel of left foot for three years. CONTRAST: 18 cc MultiHance (gadobenate) IV MEDICAL HISTORY : Diabetes mellitus type 2. Hypertension. Renal failure, acute. Seizure. SURGICAL HISTORY : Tonsillectomy. Port. ENCOUNTER: Initial ACUITY: 1 day PAIN SCORE: 0/10 LOCATION: Left Foot. TECHNIQUE: Multiplanar, multisequence MRI examination was performed without contrast and after th e intravenous administration of gadolinium. FINDINGS: Moderate motion artifact is present. There is marked soft-tissue swelling. There is a large ulcer on the heel with marked edema in the calcaneus. The bone does appear to be partially ex posed. Findings would be consistent with a calcaneal osteomyelitis. There is generalized edema throughout the remainder of the foot without obvious marrow changes of ost eomyelitis. CONCLUSION: Marrow edema in the calcaneus associated with the large calcaneal ulcer with very lit tle if any skin covering evident. The patient has a significant pes planus deformity as well. Findin gs would be consistent with a osteomyelitis. Neurotrophic foot may also contribute to this process. Romario Pickering MD FACR on August 18, 2016 at 19:13 Board Certified Radiologist. This report was verified electronically.
[2016-08-18 20:00] VITALS: BP 149/65; PULSE 61; RESP 18; TEMP 97.1; O2SAT 98
[2016-08-18] MEDS: valACYclovir HCL 500 MG TAB PO SCH (21:48)
[2016-08-18] MEDS: FUROSEMIDE 40 MG TAB PO SCH (21:49)
[2016-08-18] MEDS: FUROSEMIDE 20 MG TAB PO SCH (21:49)
[2016-08-18] MEDS: SUCRALFATE 1 GM TAB PO SCH (21:49)
[2016-08-18] MEDS: SODIUM CHLOR 0.9% 1000 ML INJ 1,000 ML IV SCH (21:56)
[2016-08-18] MEDS: SODIUM CHLORIDE 0.9% FLUSH 10 ML FLUSH IV FLUSH SCH (21:56)
[2016-08-18] MEDS: ALPRAZolam 1 MG TAB PO PRN (22:46)
[2016-08-18] MEDS: ACETAMINOPHEN/HYDROcodone 325 MG/10 MG TAB PO PRN (22:46)
[2016-08-19] VITALS (7 sets, daily range): BP systolic 98–123; BP diastolic 55–66; PULSE 50–90; RESP 16–20; TEMP 96.6–97.7; O2SAT 86–98
[2016-08-19] MEDS: INSULIN ASPART SUPPLEMENTAL SCALE SQ SCH ×4 (05:51→21:12)
--- NOTE | 2016-08-19 07:28 | HHI.FPPN ---
Subjective Remarks Areli Kat is a 60yo lady with ESRD on dialysis, DM II, and chronic left heel ulcer admitted for suspected osteomyelitis of left heel. She initially presented to ED for worsening LE edema and concern for worsening renal function. Work up for this was reassuring, but evaluation of left heel wound revealed suspected osteomyelitis of left calcaneus. She has chronic ulcer of left heel x 2 years for which she follows up with Dr Sun in [place]. She denies any drainage, pain, fever, redness of skin. For further details, please see resident H&P. This morning, she reports continued swelling of her lower extremities. She denies SOB, chest pain. ROS: No fevers, no chills. + edema. No SOB, no chest pain. + left foot pain. All other systems reviewed are negative. PMH/PSxH/SocHx/FamHx: Per resident H&P. Significant for: PVD, ESRD, DM II, CHF ( unknown EF). Chronic wound left heel. HTN, COPD, anxiety ,depression. AV fistula ; I & D of left breast abscess. Fam hx of alzheimer disease, colon CA and kidney disease. 5 cigarettes per day, x 45 years. No alcohol or recreational drug use. Objective Vitals Vital Signs Date Time Temp Pulse Resp B/P Pulse Ox O2 Delivery O2 Flow Rate FiO2 08/19/16 00:00 97.2 90 117/66 98 08/18/16 23:46 18 08/18/16 20:00 97.1 61 18 149/65 98 08/18/16 16:37 63 19 123/58 94 Room Air 08/18/16 13:34 76 19 112/59 95 Room Air 08/18/16 10:12 97.9 63 19 130/62 93 Room Air 08/18/16 10:12 61 08/18/16 10:07 97.8 63 19 130/62 92 08/18/16 09:59 98.5 62 17 136/60 96 Room Air Objective Remarks GENERAL: in NAD, no resp distress, nontoxic. Sitting comfortably in chair. HEENT: NCAT, EOMI, no scleral icterus, no conjunctival injection. MMM. Poor dentition. NECK: Supple, no meningeal signs. CV: RRR, S1 S2. No murmurs CHEST/PULM: Good air movement. CTAB. No crackles. ABD/GI: +BS, soft, nondistended, nontender. Obese. EXT: 1+ pitting edema to mid mejia. Left heel as below. NEURO: Awake, alert. Normal muscle tone. SKIN: No rash, no jaundice. Large 5 x 7cm swallow ulceration on left heel with two small 1 cm deeper ulcers at the inferior aspect of heel. No active drainage or bleeding. Sensation and motor grossly intact. PSYCH: Awake, alert. Speech fluent. Does not appear to respond to internal stimuli. A/P Assessment and Plan Patient is a 60 year old female with history of ESRD and diabetes who is admitted for evaluation of osteomyelitis of left calcaneus. Attending Attestation Patient seen, examined, and discussed with resident team. The patient has been seen and examined. The chart and all resident notes have been reviewed. I agree that inpatient care is appropriate and that a two midnight stay is expected for the reasons documented in the resident history and physical. I have discussed this with the resident and certify the resident s order for inpatient admission. Problem List: (1) Osteomyelitis of foot Status: Chronic Plan: Patient with history of chronic left heel wound x 2 years. Has been seeing Dr. Sun in [place] for wound care. Reports that she was supposed to start hyperbaric chamber tomorrow. X-ray in ED concerning for possible osteomyelitis of calcaneus, thus medicine team was called to admit patient for IV antibiotics and further evaluation. Mild leukocytosis of 11.8 with slight left shift. -MRI of left foot demonstrates osteo of calcaneus. -ESR elevated. -Patient given Clindamycin and Vancomycin in ED. Will hold off on continue antibiotics until evaluation from ID and podiatry -Wound and blood cultures pending -Pain control with Lortab 10mg Q8hrs and Morphine 2mg Q3hr prn Records have been requested from recent ID doctor, Dr Wolf, and from wound care doctor, Dr Sun (2) ESRD (end stage renal disease) on dialysis Status: Chronic Plan: BUN/creatinine 34/1.59 on admission. Patient reports history of ESRD on hemodialysis. Last HD was last Thursday (08/12/16); however reports that her mangle operator garments told her she did not need dialysis anymore. -Avoid nephrotoxic agents -Renally dose medications -Monitor renal function -Consider nephrology consult if renal function worsens. -Will attempt to contact dialysis center to confirm patient's story regarding dialysis. (3) Hypertension Status: Chronic Plan: BP stable. Continue home antihypertensives. (4) COPD (chronic obstructive pulmonary disease) Status: Chronic Plan: No evidence of exacerbation. O2 stable on room air. Lung exam unremarkable. -Albuterol Q4h prn -Smoking cessation counseling provided (5) Diabetes Status: Chronic Plan: History of T2DM; states that she is on Levemir (unsure about the dose) and Novolog sliding scale at home. Serum glucose on admission 67. Reports that her glucoses have been running low for the past couple of weeks. -Accuchecks -Start D5 1/2 NS at 75cc/hr since patient will be NPO -Sliding Scale Insulin prn (6) CHF (congestive heart failure) Status: Chronic Plan: Patient reports history of CHF; had ECHO several months ago but unsure what her EF was. No evidence of exacerbation at this time. Lungs are clear on exam. -Continue to monitor -Caution with IVFs -Continue home dose of Lasix 60mg po BID (7) Normocytic anemia Status: Chronic Plan: Secondary to chronic kidney disease vs chronic infection. No obvious active bleeding. Hemodynamically stable. Problem Qualifiers (1) Osteomyelitis of foot: Qualified Code: M86.8X7 - Other osteomyelitis of left foot Barbra Braun MD Aug 19, 2016 07:28 Problem Qualifiers (1) Osteomyelitis of foot: Qualified Code: M86.8X7 - Other osteomyelitis of left foot Barbra Braun MD Aug 19, 2016 07:28
[2016-08-19] MEDS: TOPIRAMATE 25 MG TAB PO SCH (09:05)
[2016-08-19] MEDS: FUROSEMIDE 40 MG TAB PO SCH ×2 (09:05→21:02)
[2016-08-19] MEDS: amLODIPine BESYLATE 5 MG TAB PO SCH (09:05)
[2016-08-19] MEDS: ARIPiprazole 5 MG TAB PO SCH (09:05)
[2016-08-19] MEDS: SUCRALFATE 1 GM TAB PO SCH ×4 (09:06→21:11)
[2016-08-19] MEDS: ASPIRIN EC 81 MG TABEC PO SCH (09:06)
[2016-08-19] MEDS: ISOSORBIDE DINITRATE 10 MG TAB PO SCH (09:08)
[2016-08-19] MEDS: ACETAMINOPHEN/HYDROcodone 325 MG/10 MG TAB PO PRN ×2 (09:11→16:23)
[2016-08-19] MEDS: FUROSEMIDE 20 MG TAB PO SCH ×2 (09:17→21:00)
[2016-08-19 09:54] LABS: AUTOMATED NEUTROPHIL # 7.4 TH/MM3 (1.8-7.7); BASOPHIL # 0.1 TH/MM3 (0-0.2); BASOPHIL % 0.5 % (0.0-2.0); EOSINOPHIL # 0.2 TH/MM3 (0-0.4); EOSINOPHIL % 1.7 % (0.0-4.0); HEMATOCRIT 37.3 % (35.0-46.0); HEMO FLAGS AUTO DIFF; LYMPH % 21.7 % (9.0-44.0); LYMPHOCYTE # 2.3 TH/MM3 (1.0-4.8); MEAN CORPUSCULAR HEMOGLOBIN 32.3 PG (27.0-34.0); MEAN CORPUSCULAR HGB CONC 33.3 % (32.0-36.0); MONO % 6.8 % (0.0-8.0); NEUT % 69.3 % (16.0-70.0); PLATELET COUNT 218 TH/MM3 (150-450); RED BLOOD COUNT 3.84 MIL/MM3 (4.00-5.30); RED CELL DISTRIBUTION WIDTH 15.3 % (11.6-17.2); WHITE BLOOD COUNT 10.6 TH/MM3 (4.0-11.0)
[2016-08-19] MEDS ORDERED: TETANUS/DIPHTHERIA TOXOID ADULT 0.5 ML VIAL IM ONE (10:15)
[2016-08-19 10:23] LABS: PLATELET ESTIMATE SMEAR NORMAL (NORMAL); PLATELET MORPHOLOGY NORMAL (NORMAL); SCAN/DIFF AUTO DIFF CONFIRMED
[2016-08-19 11:02] LABS: ALKALINE PHOSPHATASE 117 U/L (45-117); ALT (GPT) 15 U/L (10-53); ANION GAP 8 MEQ/L (5-15); AST (GOT) 15 U/L (15-37); BICARBONATE 30.3 MEQ/L (21.0-32.0); CHLORIDE 105 MEQ/L (98-107); GLOMERULAR FILTRATION RATE 36 ML/MIN (>89); POTASSIUM 4.4 MEQ/L (3.5-5.1); SODIUM (NA) 143 MEQ/L (136-145); TOTAL BILIRUBIN ADULT 0.3 MG/DL (0.2-1.0)
[2016-08-19 11:04] LABS: BLOOD UREA NITROGEN 30 MG/DL (7-18)
--- NOTE | 2016-08-19 13:10 | PD.ID.CON ---
History of Present Illness Service ID Consult Requested By Dr Hughes Reason for Consult L heel osteo Primary Care Physician Amber Rodriguez MD Diagnoses: History of Present Illness 60 yo female suffreing from DM, ESRD and obesity presetns with long standing L heel ulceration with d/c Pt presented to ER for a different reason (generalysed edma) SHe has this ulcer for 2-3 years. She follows up with Dr. Sun in [place] for wound care and has an appointment this wk for her first hyperbaric chamber treatment. She completed Levaquine about 1 mo ago and prior to it she was on IV abx for 1- 2 mos SHe thinks her ulcer is better SHe saw her certified paralegal last week Xray and MRI showed osteomyelitis of the calcaneus Podiatry was consulted Admits to active smoking Review of Systems Except as stated in HPI: all other systems reviewed are Neg Past Family Social History Allergies: Coded Allergies: Latex (Verified Allergy, Severe, rash, 08/11/16) Penicillin (Verified Allergy, Severe, Rash, 08/11/16) Sulfa (Verified Allergy, Severe, itching, vomiting, 08/11/16) Past Medical History PVD DM ESRD CHF last echo was a few months ago but does not recall what the EF was HLD GERD HTN Back arthritis Seizure 10 years ago COPD Anxiety Depression Past Surgical History Tonsillectomy AV fistula L. Breast abscess I&D Active Ordered Medications Medications where reviewed in EMR Antibiotics Include: vancomycin Family History Alzheimer Colon cancer Kidney disease Social History Smokes 5 cigarettes per day since 15 No ETOH or illicit drug use On disability. Lives with relatives Physical Exam Vital Signs Vital Signs Date Time Temp Pulse Resp B/P Pulse Ox O2 Delivery O2 Flow Rate FiO2 08/19/16 12:00 96.6 55 20 110/57 94 08/19/16 11:48 18 08/19/16 08:00 97.7 51 18 122/55 98 08/19/16 04:00 97.5 50 20 111/58 95 08/19/16 02:26 86 08/19/16 00:00 97.2 90 117/66 98 08/18/16 20:00 97.1 61 18 149/65 98 08/18/16 16:37 63 19 123/58 94 Room Air 08/18/16 13:34 76 19 112/59 95 Room Air Physical Exam CONSTITUTIONAL/GENERAL: This is an obese female patient, in no apparent distress. TUBES/LINES/DRAINS: Hickmann in place R chest wo e/o infx SKIN: No jaundice, rashes, or lesions. Skin temperature appropriate. Not diaphoretic. HEAD: Atraumatic. Normocephalic. EYES: Pupils equal and round and reactive. Extraocular motions intact. No scleral icterus. No injection or drainage. Fundi not examined. ENT: Hearing grossly normal. Nose without bleeding or purulent drainage. Gabrielle mucosae moist, very poor dentition NECK: Trachea midline. Supple, nontender. No palpable thyroid enlargement or nodularity. CARDIOVASCULAR: Regular rate and rhythm without murmurs, gallops, or rubs. No JVD. Peripheral pulses symmetric. RESPIRATORY/CHEST: Symmetric, unlabored respirations. Clear to auscultation. Breath sounds equal bilaterally. No wheezes, rales, or rhonchi. GASTROINTESTINAL: Abdomen soft, non-tender, moderately distended. No hepato- splenomegaly, or palpable masses. No guarding. Bowel sounds present. GENITOURINARY: Without palpable bladder distension. MUSCULOSKELETAL: Extremities without clubbing, cyanosis, or significant edema. B/l hyperpirgmentation on the shins Large ulceration on the L heel with small amount of serous dc on the dressing Ulcere is surraounfded by area of hyperkeratosis Pulses non palpable LYMPHATICS: No palpable cervical or supraclavicular adenopathy. NEUROLOGICAL: Awake and alert. Motor and sensory grossly within normal limits. Follows commands. Normal speech. Moves all extremities. PSYCHIATRIC: No obvious anxiety/depression. no apparent hallucinations or other psychotic thought process. Laboratory Laboratory Tests Test 08/18/16 08/19/16 15:35 08:40 Erythrocyte Sedimentation Rate 53 White Blood Count 10.6 Red Blood Count 3.84 Hemoglobin 12.4 Hematocrit 37.3 Mean Corpuscular Volume 97.0 Mean Corpuscular Hemoglobin 32.3 Mean Corpuscular Hemoglobin 33.3 Concent Red Cell Distribution Width 15.3 Platelet Count 218 Mean Platelet Volume 8.2 Neutrophils (%) (Auto) 69.3 Lymphocytes (%) (Auto) 21.7 Monocytes (%) (Auto) 6.8 Eosinophils (%) (Auto) 1.7 Basophils (%) (Auto) 0.5 Neutrophils # (Auto) 7.4 Lymphocytes # (Auto) 2.3 Monocytes # (Auto) 0.7 Eosinophils # (Auto) 0.2 Basophils # (Auto) 0.1 CBC Comment AUTO DIFF Differential Comment AUTO DIFF CONFIRMED Platelet Estimate NORMAL Platelet Morphology Comment NORMAL Hematology Comments Sodium Level 143 Potassium Level 4.4 Chloride Level 105 Carbon Dioxide Level 30.3 Anion Gap 8 Blood Urea Nitrogen 30 Creatinine 1.50 Estimat Glomerular Filtration 36 Rate Random Glucose 55 Calcium Level 8.8 Total Bilirubin 0.3 Aspartate Amino Transf 15 (AST/SGOT) Alanine Aminotransferase 15 (ALT/SGPT) Alkaline Phosphatase 117 Total Protein 6.4 Albumin 3.0 Date/Time Procedure Status Source Growth 08/18/16 12:36 Gram Stain - Final Resulted Wound Foot 08/18/16 12:36 Wound Culture Resulted Wound Foot Pending 08/18/16 12:10 Aerobic Blood Culture - Preliminary Resulted Blood Peripheral NO GROWTH IN 1 DAY 08/18/16 12:10 Anaerobic Blood Culture - Preliminary Resulted Blood Peripheral NO GROWTH IN 1 DAY Result Diagram: 08/19/16 0840 08/19/16 0840 Imaging Last Impressions Foot X-Ray 08/18/16 0000 Signed Impressions: Service Date/Time: Thursday, August 18, 2016 10:33 - CONCLUSION: Findings are concerning for possible osteomyelitis of the calcaneus with overlying ulceration. Micha Tobar MD Foot MRI 08/18/16 0000 Signed Impressions: Service Date/Time: Thursday, August 18, 2016 18:17 - CONCLUSION: Marrow edema in the calcaneus associated with the large calcaneal ulcer with very little if any skin covering evident. The patient has a significant pes planus deformity as well. Findings would be consistent with a osteomyelitis. Neurotrophic foot may also contribute to this process. Romario Pickering MD FACR Assessment and Plan Assessment and Plan CKD near ESRD, admitted 2/2 fluid retention - was recently taken off HD and states oliguria (about 1 cup of urine 2 x/day ) DM L heelDFI/ osteomyelitis. No acute issue, likely chronic osteo for which pt has a tx plan with her o/p certified paralegal. Admitted to the hospital for diifferent problem - 1 dose of vancomycin given PVD awaiting for certified paralegal input will d/w certified paralegal and admitting team Love Monteiro MD Aug 19, 2016 13:10
--- NOTE | 2016-08-19 16:06 | RADRPT ---
EXAM DATE/TIME: 08/19/2016 00:00 [facility] COMPARISON: No previous studies available for comparison. INDICATIONS : Left foot osteomyelitis TECHNIQUE: Four-cuff ankle and brachial pressures were obtained. Pulse cuff waveform tracings of the ankles were recorded, and ankle-brachial indices were calculated. PRESSURES (mmHg): Brachial (arm): Right NO BP PRESSURE ALLOWED Left 115 Ankle: Right CNO>220 Left 146 VALARIE: Right CNO Left 1.27 TBI: Right 1.26 Left 0.90 PULSED CUFF WAVEFORMS: Demonstrate normal amplitude in the right ankle and toe. Left ankle waveform is blunted. CONCLUSION: Significant pressure elevation in the ankles and noncalculable right VALARIE and elevated left VALARIE indica tive of significant atherosclerotic vascular disease. Elevated right TBI Normal left TBI No specific findings for significant arterial insufficiency. Dilip Colmenares MD on August 19, 2016 at 16:01 Board Certified Radiologist. This report was verified electronically.
--- NOTE | 2016-08-19 16:19 | PD.CONS ---
History of Present Illness Service Podiatry Consult Requested By Reason for Consult Left heel infection, osteomyelitis Primary Care Physician Amber Rodriguez MD Diagnoses: History of Present Illness 60 yo female suffreing from DM, ESRD and obesity presetns with long standing L heel ulceration with d/c Pt presented to ER for a different reason (generalysed edma) SHe has this ulcer for 2-3 years. She follows up with Dr. Sun in [place] for wound care and has an appointment this wk for her first hyperbaric chamber treatment. She completed Levaquine about 1 mo ago and prior to it she was on IV abx for 1- 2 mos SHe thinks her ulcer is better Cryolite Recovery Operator, me, saw patient at bedside today. Pt states she came for fistula and refuses any surgery and wants to try hyperbaric oxygen therapy in [place]. She denies foot pain and has foot wrapped bedside in post op shoe Past Family Social History Allergies: Coded Allergies: Latex (Verified Allergy, Severe, rash, 08/11/16) Penicillin (Verified Allergy, Severe, Rash, 08/11/16) Sulfa (Verified Allergy, Severe, itching, vomiting, 08/11/16) Physical Exam Vital Signs Vital Signs Date Time Temp Pulse Resp B/P Pulse Ox O2 Delivery O2 Flow Rate FiO2 08/19/16 12:00 96.6 55 20 110/57 94 08/19/16 11:48 18 08/19/16 08:00 97.7 51 18 122/55 98 08/19/16 04:00 97.5 50 20 111/58 95 08/19/16 02:26 86 08/19/16 00:00 97.2 90 117/66 98 08/18/16 20:00 97.1 61 18 149/65 98 08/18/16 16:37 63 19 123/58 94 Room Air Physical Exam GENERAL: This is a well-nourished, well-developed patient, in no apparent distress. SKIN: No rashes, ecchymoses or lesions. Cool and dry. HEAD: Atraumatic. Normocephalic. No temporal or scalp tenderness. EYES: Pupils equal round and reactive. Extraocular motions intact. No scleral icterus. No injection or drainage. ENT: Nose without bleeding, purulent drainage or septal hematoma. Throat without erythema, tonsillar hypertrophy or exudate. Uvula midline. Airway patent. NECK: Trachea midline. No JVD or lymphadenopathy. Supple, nontender, no meningeal signs. CARDIOVASCULAR: Regular rate and rhythm without murmurs, gallops, or rubs. RESPIRATORY: Clear to auscultation. Breath sounds equal bilaterally. No wheezes , rales, or rhonchi. GASTROINTESTINAL: Abdomen soft, non-tender, nondistended. No hepato-splenomegaly , or palpable masses. No guarding. MUSCULOSKELETAL: Extremities without clubbing, cyanosis, or edema. No joint tenderness, effusion, or edema noted. No calf tenderness. Negative Homans sign bilaterally. NEUROLOGICAL: Awake and alert. Cranial nerves II through XII intact. Motor and sensory grossly within normal limits. Five out of 5 muscle strength in all muscle groups. Normal speech. Laboratory Laboratory Tests Test 08/19/16 08:40 White Blood Count 10.6 Red Blood Count 3.84 Hemoglobin 12.4 Hematocrit 37.3 Mean Corpuscular Volume 97.0 Mean Corpuscular Hemoglobin 32.3 Mean Corpuscular Hemoglobin 33.3 Concent Red Cell Distribution Width 15.3 Platelet Count 218 Mean Platelet Volume 8.2 Neutrophils (%) (Auto) 69.3 Lymphocytes (%) (Auto) 21.7 Monocytes (%) (Auto) 6.8 Eosinophils (%) (Auto) 1.7 Basophils (%) (Auto) 0.5 Neutrophils # (Auto) 7.4 Lymphocytes # (Auto) 2.3 Monocytes # (Auto) 0.7 Eosinophils # (Auto) 0.2 Basophils # (Auto) 0.1 CBC Comment AUTO DIFF Differential Comment AUTO DIFF CONFIRMED Platelet Estimate NORMAL Platelet Morphology Comment NORMAL Hematology Comments Sodium Level 143 Potassium Level 4.4 Chloride Level 105 Carbon Dioxide Level 30.3 Anion Gap 8 Blood Urea Nitrogen 30 Creatinine 1.50 Estimat Glomerular Filtration 36 Rate Random Glucose 55 Calcium Level 8.8 Total Bilirubin 0.3 Aspartate Amino Transf 15 (AST/SGOT) Alanine Aminotransferase 15 (ALT/SGPT) Alkaline Phosphatase 117 Total Protein 6.4 Albumin 3.0 Date/Time Procedure Status Source Growth 08/18/16 12:36 Gram Stain - Final Resulted Wound Foot 08/18/16 12:36 Wound Culture - Preliminary Resulted Wound Foot HEAVY GROWTH NORMAL SKIN ALFRED AT 24HRS 08/18/16 12:10 Aerobic Blood Culture - Preliminary Resulted Blood Peripheral NO GROWTH IN 1 DAY 08/18/16 12:10 Anaerobic Blood Culture - Preliminary Resulted Blood Peripheral NO GROWTH IN 1 DAY Result Diagram: 08/19/16 0840 08/19/16 0840 Imaging Xray and MRI shows murali changes consistent with osteomyelitis calcaneus with possible charcot joint breakdown with significant flat foot deformity Course Left foot- faint palpable pulses no redness to left foot Loss of sensation left foot Hair loss to toes and thin skin distal cooling LEft plantar thin tissue with ill defined ulcer with near exposed bone with probing. No pus, skin dry, no straking or redness around ulcer, loss of plantar heel fat pad Assessment and Plan Assessment and Plan Left foot diabetic ulcer with chronic osteomyelitis, stable Pt care discussed with nurse. With clinical probing to bone 98% likelihood it is osteo of calcaneus. -Pt insisted on trying local conservative wound care in [place] and I do not see an emergent need to go to OR for bone biopsy and pt refuses calcanectomy -If problem becomes acute I believe she will need surgical intervention but not septic or clinical acute infection at this moment -Pt dressing with 4x4, kerlix, Braxton and to follow up upon D/C fro local wound care Thank you for the consult Noah Howell DPM Aug 19, 2016 16:19
[2016-08-19] MEDS: SODIUM CHLOR 0.9% 1000 ML INJ 1,000 ML IV SCH (16:24)
[2016-08-19] MEDS: valACYclovir HCL 500 MG TAB PO SCH (21:01)
[2016-08-19] MEDS: ALPRAZolam 1 MG TAB PO PRN (21:04)
[2016-08-19] MEDS: SODIUM CHLORIDE 0.9% FLUSH 10 ML FLUSH IV FLUSH SCH (21:05)
[2016-08-20] VITALS (7 sets, daily range): BP systolic 107–142; BP diastolic 53–69; PULSE 52–110; RESP 18–22; TEMP 95.4–97.3; O2SAT 93–100
[2016-08-20] MEDS: ACETAMINOPHEN/HYDROcodone 325 MG/10 MG TAB PO PRN ×2 (01:41→11:20)
[2016-08-20] MEDS: INSULIN ASPART SUPPLEMENTAL SCALE SQ SCH ×4 (06:48→23:39)
[2016-08-20] MEDS: ARIPiprazole 5 MG TAB PO SCH (08:53)
[2016-08-20] MEDS: ISOSORBIDE DINITRATE 10 MG TAB PO SCH (08:53)
[2016-08-20] MEDS: amLODIPine BESYLATE 5 MG TAB PO SCH (08:53)
[2016-08-20] MEDS: TOPIRAMATE 25 MG TAB PO SCH (08:54)
[2016-08-20] MEDS: ASPIRIN EC 81 MG TABEC PO SCH (08:54)
[2016-08-20] MEDS: FUROSEMIDE 40 MG TAB PO SCH ×2 (08:54→23:40)
[2016-08-20] MEDS: FUROSEMIDE 20 MG TAB PO SCH ×2 (08:56→23:39)
[2016-08-20] MEDS: SODIUM CHLORIDE 0.9% FLUSH 10 ML FLUSH IV FLUSH SCH ×2 (08:56→23:38)
--- NOTE | 2016-08-20 10:49 | HHI.FPPN ---
Subjective Remarks No acute events. Sitting up in bed. Foot ulcer remains the same. She continues to have significant edema from ESRD. Has good appetite. No other complaints this morning. Objective Vitals Vital Signs Date Time Temp Pulse Resp B/P Pulse Ox O2 Delivery O2 Flow Rate FiO2 08/20/16 09:06 97.3 52 18 107/66 97 08/20/16 04:40 97.0 57 18 124/57 93 08/20/16 03:00 17 08/20/16 00:00 97.3 57 18 113/53 94 08/19/16 20:00 96.7 66 16 123/58 94 08/19/16 16:00 97.4 65 20 98/66 97 08/19/16 12:00 96.6 55 20 110/57 94 I/O 08/19/16 08/19/16 08/19/16 08/20/16 08/20/16 08/20/16 07:00 15:00 23:00 07:00 15:00 23:00 Intake Total 660 ml 480 ml Balance 660 ml 480 ml Intake Oral 480 ml IV Total 660 ml # Voids 3 2 2 # Bowel Movements 1 0 Result Diagram: 08/19/16 0840 08/19/16 0840 Imaging Last 72 hours Impressions Foot X-Ray 08/18/16 0000 Signed Impressions: Service Date/Time: Thursday, August 18, 2016 10:33 - CONCLUSION: Findings are concerning for possible osteomyelitis of the calcaneus with overlying ulceration. Micha Tobar MD Foot MRI 08/18/16 0000 Signed Impressions: Service Date/Time: Thursday, August 18, 2016 18:17 - CONCLUSION: Marrow edema in the calcaneus associated with the large calcaneal ulcer with very little if any skin covering evident. The patient has a significant pes planus deformity as well. Findings would be consistent with a osteomyelitis. Neurotrophic foot may also contribute to this process. Romario Pickering MD FACR Objective Remarks GENERAL: Sitting up eating HEENT: NCAT, EOMI, no scleral icterus, no conjunctival injection. MMM. Poor dentition. NECK: Supple, no meningeal signs. CV: RRR, S1 S2. No murmurs CHEST/PULM: Good air movement. CTAB. No crackles. ABD/GI: +BS, soft, nondistended, nontender. Obese. EXT: 1+ pitting edema to mid mejia. Left heel as below. NEURO: Awake, alert. Normal muscle tone. SKIN: No rash, no jaundice. Large 5 x 7cm swallow ulceration on left heel with two small 1 cm deeper ulcers at the inferior aspect of heel. No active drainage or bleeding. Sensation and motor grossly intact. PSYCH: Awake, alert. A/P Assessment and Plan 60 year old female with history of ESRD and diabetes who is admitted for evaluation of chronic osteomyelitis of left calcaneus. Discharge Planning Pending recommendations from infectious disease regarding antibiotic regimen and recommendations from vascular surgery regarding peripheral arterial disease. Problem List: (1) Osteomyelitis of foot Status: Chronic Plan: History of chronic left heel wound x 2 years. Has been seeing Dr. Sun in [place] for wound care. Reports that she was supposed to start hyperbaric therapy. X-ray in ED concerning for osteomyelitis of calcaneus. No fevers, WBC 10.6. ESR elevated to 53. - MRI of left foot demonstrates osteo of calcaneus, likely chronic. - Podiatry consulted. She prefers conservative management. - Surgery only if the situation becomes acute in nature, currently not. - Patient given Clindamycin and Vancomycin in ED. Will hold off on antibiotics and defer to infectious disease. She received significant amounts of antibiotics as an outpatient already. - Wound and blood cultures pending - Pain control with Lortab 10mg Q8hrs and Morphine 2mg Q3hr prn - Records have been requested from recent ID doctor, Dr Wolf, and from wound care doctor, Dr Sun - Will receive conservative wound care in [place] on discharge. - Dressings with 4X4, Kerlix, Braxton wrap. (2) ESRD (end stage renal disease) on dialysis Status: Chronic Plan: BUN/creatinine 34/1.59 on admission. Patient reports history of ESRD on hemodialysis. Last HD was last Thursday (08/12/16). Presented with edema of lower extremities. Dr. Valdez is her service dismantler. -Avoid nephrotoxic agents -Renally dose medications -Monitor renal function -Consider nephrology consult if renal function worsens. -Contacted her dialysis center, [facility] in [place]. Per [facility], Dr. Valdez discontinued dialysis because her kidney function was decent. Will follow up with Dr. Valdez on discharge. (3) Hypertension Status: Chronic Plan: BP stable. Continue home antihypertensives. (4) COPD (chronic obstructive pulmonary disease) Status: Chronic Plan: No evidence of exacerbation. O2 stable on room air. Lung exam unremarkable. -Albuterol Q4h prn -Smoking cessation counseling provided (5) Diabetes Status: Chronic Plan: History of T2DM; states that she is on Levemir (unsure about the dose) and Novolog sliding scale at home. Serum glucose on admission 67. -Accuchecks -Sliding Scale Insulin prn (6) CHF (congestive heart failure) Status: Chronic Plan: Patient reports history of CHF. No evidence of exacerbation at this time. Lungs are clear on exam. -Continue to monitor -Caution with IVFs -Continue home dose of Lasix 60mg po BID (7) Normocytic anemia Status: Chronic Plan: Secondary to chronic kidney disease vs chronic infection. No obvious active bleeding. Hemodynamically stable. Problem Qualifiers (1) Osteomyelitis of foot: Qualified Code: M86.8X7 - Other osteomyelitis of left foot Lyle Bright MD R2 Aug 20, 2016 10:49
[2016-08-20] MEDS: ALPRAZolam 1 MG TAB PO PRN ×2 (11:12→23:42)
[2016-08-20] MEDS: SUCRALFATE 1 GM TAB PO SCH ×4 (11:12→23:40)
--- NOTE | 2016-08-20 12:49 | HHI.PR ---
Addendum to Inpatient Note Additional Information Dw Dr Schofield Pt presented to ER for generalysed edema, also has concomittant chronic osteo for which she is receiving tx elsewhere Agree with Dr Howell assessment: pt need to fu with her established provider. All abx adjusmnets need to be made base on deep tissue/ bone bx results At this point I will recommend to discharge pt to fu with her rd mechanical engineer as it was scheduled (she saw her rd mechanical engineer 1 wk ago and has hyperbaric scheduled). Bone bx should be done off abx for the best results Love Monteiro MD Aug 20, 2016 12:49
--- NOTE | 2016-08-20 14:18 | PD.VS.CON ---
History of Present Illness Chief Complaint: Left heel/foot ulcer time 2 years Consult Requested by: Dr. Crockett History of Present Illness As written Patient is a 60 year old female with history of ESRD and diabetes who initially presented to ED for evaluation of generalized edema and now admitted for possible left calcaneus osteomyelitis. Patient is a poor historian. States that she has been getting dialysis at [facility]; however they told her that she would not need dialysis anymore. Last HD was on ThursdayAugust 12. However she feels like she is "blowing up again" secondary to fluid retention. Endorses worsening lower extremity edema. Work up in the ED showed that her renal function is actually stable with creatinine of 1.59. Electrolytes were within normal limits ; however it was noted that patient has a large ulcer on her left heel. X-ray was obtained and significant for possible osteomyelitis of calcaneus. (Alivia Ramos) Past/Family/Social History Past Medical History PVD DM ESRD CHF last echo was a few months ago but does not recall what the EF was HLD GERD HTN Back arthritis Seizure 10 years ago COPD Anxiety Depression Past Surgical History Tonsillectomy AV fistula L. Breast abscess I&D Social History Smokes 5 cigarettes per day since age 15 Denies EtOH or illicit drug use On disability. Lives with niece and nephew in [place] Family History Alzheimer Colon cancer Kidney disease (Alivia Ramos) Home Medications Reported Medications Furosemide 40 Mg Tab40 Mg PO BID #60 TAB Ref 0 08/18/16 Furosemide 20 Mg Tab20 Mg PO BID #60 TAB Ref 0 08/18/16 Aripiprazole 5 Mg Tab5 Mg PO DAILY #30 TAB Ref 0 08/18/16 Valacyclovir (Valtrex)1 Gm Tab1,000 Mg PO HS #30 TAB Ref 0 07/11/16 Topiramate 25 Mg Tab25 Mg PO DAILY #60 TAB Ref 0 04/16/16 Sucralfate 1 Gm Tab1 Gm PO QID #120 TAB Ref 0 on empty stomach 04/16/16 Albuterol 6.7 GM Inh (Proventil Hfa 6.7 GM Inh)90 Mcg/Act Aer2 Puff INH Q6H PRN (SHORTNESS OF BREATH) #1 INHALER Ref 0 04/16/16 Ondansetron 4 Mg Tab8 Mg PO Q6HR PRN (NAUSEA) 04/16/16 Insulin Aspart Inj (Novolog Inj)100 Unit/Ml Inj2-12 Units SQ ACHS PER SLIDING SCALE 04/16/16 Isosorbide Dinitrate 30 Mg Tab30 Mg PO DAILY 04/16/16 Hydrocodone-Acetaminophen (Lortab)10-325 Mg Tab1 Tab PO Q8HR PRN (PAIN) Ref 0 04/16/16 Aspirin 81 Mg Tabdr81 Mg PO DAILY 04/16/16 Amlodipine 5 Mg Tab5 Mg PO DAILY #30 TAB Ref 0 04/16/16 Discontinued Reported Medications Insulin Glargine Inj (Lantus Inj)1,000 Unit/10 Ml Vial30 Units SQ HS Ref 0 04/21/16 B-Complex W/ C & Folic Acid (Aline-Yvonne)1 Tab1 Tab PO DAILY 04/16/16 Fluoxetine 40 Mg Cap40 Cap PO DAILY #30 CAP Ref 0 04/16/16 Fluticasone Nasal [place] (Flonase Nasal [place])50 Mcg/Act Spray50 Mcg EACH NARE DAILY #1 BOTTLE Ref 0 04/16/16 Calcium Acetate (Phosphate Bin (Calcium Acetate)667 Mg Dvu178 Mg PO WITH MEALS 04/16/16 Atorvastatin 20 Mg Tab20 Mg PO HS #30 TAB Ref 0 04/16/16 Discontinued Scripts Permethrin Topical (Elimite Topical)5% Cream1 Applic TOPICAL ONCE #1 TUBE Ref 1 Prov:Barbra Woodruff [employer] 08/13/16 Coded Allergies: Latex (Verified Allergy, Severe, rash, 08/11/16) Penicillin (Verified Allergy, Severe, Rash, 08/11/16) Sulfa (Verified Allergy, Severe, itching, vomiting, 08/11/16) Physical Exam Vitals/I&O Date Time Temp Pulse Resp B/P Pulse Ox O2 Delivery O2 Flow Rate FiO2 08/20/16 13:38 96.5 110 18 142/69 97 08/20/16 09:06 97.3 52 18 107/66 97 08/20/16 04:40 97.0 57 18 124/57 93 08/20/16 03:00 17 08/20/16 00:00 97.3 57 18 113/53 94 08/19/16 20:00 96.7 66 16 123/58 94 08/19/16 16:00 97.4 65 20 98/66 97 Neuro: CN 2-12 intact Neck: Supple Heart: RRR Lungs: CTA Abdomen: S and NT Vascular: Strong Bilat DP/PT heard via doppler with phasic signals Palpable R fem Non palpable L fem Extremities: necrotic tissue noted to left heel with ulcer (Alivia Ramos) Date/Time Procedure Status Source Growth 08/18/16 12:36 Gram Stain - Final Complete Wound Foot 08/18/16 12:36 Wound Culture - Final Complete Wound Foot HEAVY GROWTH NORMAL SKIN ALFRED... 08/18/16 12:10 Aerobic Blood Culture - Preliminary Resulted Blood Peripheral NO GROWTH IN 2 DAYS 08/18/16 12:10 Anaerobic Blood Culture - Preliminary Resulted Blood Peripheral NO GROWTH IN 2 DAYS (Alivia Ramos) Assessment and Plan Assessment: (1) Osteomyelitis of foot Status: Chronic Plan Plan Pt scheduled for an angiogram tomorrow with Dr. Rainey Hydrate with D5/Sodium Bicarb today Alivia CARREON [facility]/ID Watchdog [phone] (Alivia Ramos) Plan Patient scheduled for fistulogram to help with maturation of right upper extremity AVF. When she presented had rash over right upper extremity so delayed fistulogram although patient was fatigued. Found to have a slow healing wound of the left lower extremity with possible osteomyelitis. Has woundcare in [place] with Dr. Lopez. Non-palpable pulses left lower extremity with non healing wound. Will undergo CO2 angio with a small amount of contrast for distal vessels. Being hydrated. At risk of recurrence of need for repeat HD (Hence reason for finishing creation of right upper extremity BB AVF). Yfn Rainey DO, FACS (Yfn Rainey DO) Problem Qualifiers (1) Osteomyelitis of foot: Qualified Code: M86.8X7 - Other osteomyelitis of left foot Alivia Ramos Aug 20, 2016 14:18 Yfn Rainey DO Aug 20, 2016 18:09
[2016-08-20] MEDS ORDERED: SODIUM BICARBONATE 8.4% INJ 150 MEQ in DEXTROSE 5% IN WATE 1000ML INJ 1,000 ML IV SCH ×2 (15:00)
[2016-08-20] MEDS ORDERED: SODIUM BICARBONATE 8.4% INJ 50 MEQ in DEXTROSE 5% IN WATE 1000ML INJ 1,000 ML IV SCH ×2 (16:00)
[2016-08-20] MEDS: valACYclovir HCL 500 MG TAB PO SCH (23:40)
[2016-08-21 01:43] VITALS: BP 112/70; PULSE 57; RESP 18; TEMP 97.2; O2SAT 98
[2016-08-21 06:21] VITALS: BP 124/60; PULSE 58; RESP 16; TEMP 96.1; O2SAT 94
[2016-08-21] MEDS: INSULIN ASPART SUPPLEMENTAL SCALE SQ SCH ×4 (06:36→21:46)
[2016-08-21 08:00] LABS: HEMATOCRIT 32.6 % (35.0-46.0); MEAN CELL VOLUME 94.8 FL (80.0-100.0); MEAN CORPUSCULAR HEMOGLOBIN 31.1 PG (27.0-34.0); MEAN CORPUSCULAR HGB CONC 32.8 % (32.0-36.0); PLATELET COUNT 178 TH/MM3 (150-450); RED BLOOD COUNT 3.43 MIL/MM3 (4.00-5.30); RED CELL DISTRIBUTION WIDTH 15.2 % (11.6-17.2); REVIEW FLAG FINAL; WHITE BLOOD COUNT 9.1 TH/MM3 (4.0-11.0)
[2016-08-21 08:29] LABS: BICARBONATE 30.2 MEQ/L (21.0-32.0); POTASSIUM 3.5 MEQ/L (3.5-5.1)
[2016-08-21 08:53] VITALS: BP 120/59; PULSE 59; RESP 16; TEMP 96.3; O2SAT 91
[2016-08-21] MEDS: SUCRALFATE 1 GM TAB PO SCH ×4 (09:00→21:45)
[2016-08-21] MEDS: FUROSEMIDE 40 MG TAB PO SCH ×2 (09:13→21:45)
[2016-08-21] MEDS: TOPIRAMATE 25 MG TAB PO SCH (09:13)
[2016-08-21] MEDS: ARIPiprazole 5 MG TAB PO SCH (09:13)
[2016-08-21] MEDS: ASPIRIN EC 81 MG TABEC PO SCH (09:13)
[2016-08-21] MEDS: FUROSEMIDE 20 MG TAB PO SCH ×2 (09:14→21:45)
[2016-08-21] MEDS: ISOSORBIDE DINITRATE 10 MG TAB PO SCH (09:14)
[2016-08-21] MEDS: SODIUM CHLORIDE 0.9% FLUSH 10 ML FLUSH IV FLUSH SCH ×2 (09:14→21:00)
[2016-08-21] MEDS: amLODIPine BESYLATE 5 MG TAB PO SCH (09:14)
[2016-08-21] MEDS: ACETAMINOPHEN/HYDROcodone 325 MG/10 MG TAB PO PRN ×2 (09:16→21:46)
[2016-08-21] MEDS ORDERED: MIDAZOLAM HCL 2 MG/2 ML VIAL ONE ×2 (09:40→10:14)
[2016-08-21] MEDS ORDERED: diphenhydrAMINE HCL 50 MG/ML VIAL ONE (09:40)
[2016-08-21] MEDS ORDERED: HEPARIN-NS/PF INJ 500 ML ONE (09:43)
--- NOTE | 2016-08-21 10:47 | PD.VS.PN ---
Subjective POD #: 0 Procedure(s): CO2 angiogram and selective left lower extremity runoff. Objective Vitals/I&O Date Time Temp Pulse Resp B/P Pulse Ox O2 Delivery O2 Flow Rate FiO2 08/21/16 08:53 96.3 59 16 120/59 91 08/21/16 06:21 96.1 58 16 124/60 94 08/21/16 01:43 97.2 57 18 112/70 98 08/20/16 20:00 95.4 62 22 127/59 100 08/20/16 18:16 Nasal Cannula 2.00 08/20/16 17:02 96.6 56 18 121/66 95 08/20/16 14:19 97 Nasal Cannula 2.00 08/20/16 13:38 96.5 110 18 142/69 97 Exam: no swelling right groin and biphasic signals bilateral DP and PT. left foot (heel) wrapped. Laboratory Laboratory Tests Test 08/20/16 08/21/16 13:50 07:23 Blood Urea Nitrogen 31 31 Creatinine 1.68 1.56 Estimat Glomerular Filtration 31 34 Rate White Blood Count 9.1 Red Blood Count 3.43 Hemoglobin 10.7 Hematocrit 32.6 Mean Corpuscular Volume 94.8 Mean Corpuscular Hemoglobin 31.1 Mean Corpuscular Hemoglobin 32.8 Concent Red Cell Distribution Width 15.2 Platelet Count 178 Mean Platelet Volume 8.4 Sodium Level 140 Potassium Level 3.5 Chloride Level 104 Carbon Dioxide Level 30.2 Anion Gap 6 Random Glucose 161 Calcium Level 8.6 Date/Time Procedure Status Source Growth 08/18/16 12:36 Gram Stain - Final Complete Wound Foot 08/18/16 12:36 Wound Culture - Final Complete Wound Foot HEAVY GROWTH NORMAL SKIN ALFRED... 08/18/16 12:10 Aerobic Blood Culture - Preliminary Resulted Blood Peripheral NO GROWTH IN 2 DAYS 08/18/16 12:10 Anaerobic Blood Culture - Preliminary Resulted Blood Peripheral NO GROWTH IN 2 DAYS Assessment and Plan Assessment: (1) Osteomyelitis of foot Status: Chronic Plan Left Heel chronic ulcer. CO2 Angiogram shows appropriate arterial supply to the left lower extremity. Can resume diet. Bed rest for four hours. Right arm rash stable. Plan for follow up in 2 weeks in office to assess rash and plan for fistulogram/ revision of right upper extremity BC AVF. Will sign off today. Yfn Rainey DO, FACS Problem Qualifiers (1) Osteomyelitis of foot: Qualified Code: M86.8X7 - Other osteomyelitis of left foot Yfn Rainey DO Aug 21, 2016 10:47
--- NOTE | 2016-08-21 11:12 | MA ---
cc: YFN LEBLANC DATE 08/21/2016 PREOPERATIVE DIAGNOSIS Slow healing ulcer with possible osteomyelitis left heel PROCEDURE 1. CO2/contrast diagnostic arteriogram of the aorta, pelvis and left lower extremity 2. Angio-Seal right common femoral artery 3. Duplex ultrasound for access right common femoral artery TOTAL CONTRAST UTILIZED 30 cc SURGEON Yfn Leblanc DO PROCEDURE I got access to the right common femoral artery using duplex ultrasound. Using Seldinger technique, I exchanged for a 5-Congolese sheath. I then advanced an Omni Flush catheter over a stiff angle Glidewire into the abdominal aorta. I shot an AP aortogram with CO2. Then I shot pelvic oblique arteriograms with CO2. It should be noted that I did not see any flow-limiting lesions. It should be noted that I did subsequently shot an CHOWDHURY pelvic angiogram with about 7 cc of contrast. It was diluted. It should be noted there did not appear to be any flow limiting lesions. The abdominal aorta was widely patent. You could definitely see that the right renal artery is widely patent. The left renal artery was more difficult to identify, but appeared to be patent at its origin. The bilateral common internal and external iliac arteries were widely patent. The right common femoral and proximal profunda femoral artery and superficial femoral artery are widely patent and the sheath was in the common femoral artery approximately 1-2 cm above the takeoff of the profunda and superficial femoral artery. The left common profunda femoral artery is widely patent. The left superficial femoral artery and popliteal artery were widely patent. The patient three-vessel runoff across the level of the angle to include the anterior tibial, peroneal and posterior tibial arteries. At the end of the procedure, we had exchanged for a 6-Congolese Angio-Seal. The patient tolerated procedure well and as taken to the PACU at the end of the case for groin stabilization. DO RIGOBERTO Rodarte/JIM /10:39 AM /11:05 AM
--- NOTE | 2016-08-21 11:44 | HHI.FPPN ---
Subjective Remarks Lying in bed, no complaints this morning. She is nervous about her angiogram. Discussed with her in detail what the angiogram involves and the rationale for getting it. She continues to report generalized edema. Pain is well controlled. Reports no chest pain or problems with breathing. (Lyle Bright MD R2) Objective Vitals Vital Signs Date Time Temp Pulse Resp B/P Pulse Ox O2 Delivery O2 Flow Rate FiO2 08/21/16 08:53 96.3 59 16 120/59 91 08/21/16 06:21 96.1 58 16 124/60 94 08/21/16 01:43 97.2 57 18 112/70 98 08/20/16 20:00 95.4 62 22 127/59 100 08/20/16 18:16 Nasal Cannula 2.00 08/20/16 17:02 96.6 56 18 121/66 95 08/20/16 14:19 97 Nasal Cannula 2.00 08/20/16 13:38 96.5 110 18 142/69 97 I/O 08/20/16 08/20/16 08/20/16 08/21/16 08/21/16 08/21/16 07:00 15:00 23:00 07:00 15:00 23:00 Intake Total 1440 ml Balance 1440 ml Intake Oral 1440 ml # Voids 2 3 3 2 # Bowel Movements 0 1 3 0 (Lyle Bright MD R2) Result Diagram: 08/21/1672208/21/16722 Objective Remarks GENERAL: Lying in bed HEENT: NCAT, EOMI, no scleral icterus, no conjunctival injection. MMM. Poor dentition. NECK: Supple, no meningeal signs. CV: RRR, S1 S2. No murmurs CHEST/PULM: Good air movement. CTAB. No crackles. ABD/GI: +BS, soft, nondistended, nontender. Obese. EXT: 1+ pitting edema to mid mejia. Left heel as below. NEURO: Awake, alert. Normal muscle tone. SKIN: No rash, no jaundice. Large 5 x 7cm swallow ulceration on left heel with two small 1 cm deeper ulcers at the inferior aspect of heel. No active drainage or bleeding. Sensation and motor grossly intact. PSYCH: Awake, alert. (Lyle Bright MD R2) A/P Assessment and Plan 60 year old female with history of ESRD and diabetes who is admitted for evaluation of chronic osteomyelitis of left calcaneus. Discharge Planning Likely discharge today with follow up with Dr. Sun in [place] for wound care, and with vascular surgery regarding her AV fistula. (Lyle Bright MD R2) Attending Attestation Patient seen and examined, discussed with resident team. I agree with assessment and management as documented and discussed with me. No new concerns. Pt clinically stable. Discharge today. (Barbra Braun MD) Problem List: (1) Osteomyelitis of foot Status: Chronic Plan: History of chronic left heel wound x 2 years. Has been seeing Dr. Sun in [place] for wound care. Reports that she was supposed to start hyperbaric therapy. X-ray in ED concerning for osteomyelitis of calcaneus. No fevers, or leukocytosis. MRI of left foot demonstrates osteomyelitis of calcaneus, likely chronic. - Podiatry consulted. She prefers conservative management. - Surgery only if the situation becomes acute in nature, currently not. - Patient given Clindamycin and Vancomycin in ED. Will hold off on antibiotics and defer to infectious disease. She received significant amounts of antibiotics as an outpatient already. - Wound and blood cultures pending, negative to date. - Pain control with Lortab 10mg Q8hrs and Morphine 2mg Q3hr prn - Will receive conservative wound care in [place] on discharge. - Dressings with 4X4, Kerlix, Braxton wrap. - Angiogram shows appropriate arterial supply to left lower extremity. (2) ESRD (end stage renal disease) on dialysis Status: Chronic Plan: Patient reports history of ESRD on hemodialysis. Last HD was 08/12/16. Presented with edema of lower extremities. Dr. Valdez is her biologics specialist. -Avoid nephrotoxic agents -Renally dose medications -Monitor renal function -Consider nephrology consult if renal function worsens. -Contacted her dialysis center, [facility] in [place]. Per [facility], Dr. Valdez discontinued dialysis because her kidney function was decent without it. Will follow up with Dr. Valdez on discharge. - Will follow up with vascular surgery as an outpatient regarding AV fistula. (3) Hypertension Status: Chronic Plan: BP stable. Continue home antihypertensives. (4) COPD (chronic obstructive pulmonary disease) Status: Chronic Plan: No evidence of exacerbation. O2 stable on room air. Lung exam unremarkable. -Albuterol Q4h prn -Smoking cessation counseling provided (5) Diabetes Status: Chronic Plan: History of T2DM; states that she is on Levemir (unsure about the dose) and Novolog sliding scale at home. Serum glucose on admission 67. -Accuchecks -Sliding Scale Insulin prn (6) CHF (congestive heart failure) Status: Chronic Plan: Patient reports history of CHF. No evidence of exacerbation at this time. Lungs are clear on exam. -Continue to monitor -Caution with IVFs -Continue home dose of Lasix 60mg po BID (7) Normocytic anemia Status: Chronic Plan: Secondary to chronic kidney disease vs chronic infection. No obvious active bleeding. Hemodynamically stable. (Lyle Bright MD R2) Problem Qualifiers (1) Osteomyelitis of foot: Qualified Code: M86.8X7 - Other osteomyelitis of left foot Lyle Bright MD R2 Aug 21, 2016 11:44 Barbra Braun MD Aug 21, 2016 16:41
--- NOTE | 2016-08-21 11:47 | HHI.DCPOC ---
Discharge Care Plan Diagnosis: (1) Osteomyelitis of foot (2) CHF (congestive heart failure) (3) COPD (chronic obstructive pulmonary disease) Goals to Promote Your Health * To prevent worsening of your condition and complications * To maintain your health at the optimal level Directions to Meet Your Goals Take your medications as prescribed Follow your dietary instruction Follow activity as directed Keep your appointments as scheduled Take your immunizations and boosters as scheduled If your symptoms worsen call your PCP, if no PCP go to Urgent Care Center or Emergency Room Smoking is Dangerous to Your Health. Avoid second hand smoke Call the 24-hour hour crisis hotline for domestic abuse at Lyle Bright MD R2 Aug 21, 2016 11:46
[2016-08-21] MEDS: ALPRAZolam 1 MG TAB PO PRN (13:34)
--- NOTE | 2016-08-21 13:37 | HHI.FF ---
Face to Face Verification Diagnosis: (1) Chronic osteomyelitis involving left ankle and foot (2) ESRD (end stage renal disease) on dialysis (3) CHF (congestive heart failure) (4) Hypertension (5) COPD (chronic obstructive pulmonary disease) Home Health Nursing Order: Medical education CHF education Wound care and dressing changes (Daily dressing changes) I have seen patient Areli Kat on 08/21/16. My clinical findings support the need for the requested home health care services because: Ltd mobility - disease progression I certify that my clinical findings support that this patient is homebound because: Hx COPD- exertion dyspnea/weakness Need for psychosocial assistance Tadeo Mckinney MD R1 Aug 21, 2016 13:37
[2016-08-21 18:15] VITALS: O2SAT 91
--- NOTE | 2016-08-21 18:47 | HHI.DS ---
Tadeo Mckinney MD R1 08/21/16 1847: Discharge Summary Admission Date Aug 18, 2016 at 11:14 am Discharge Date: Aug 21, 2016 Admitting Diagnosis L Foot Osteomyelitis (1) Osteomyelitis of foot Diagnosis: Principal Plan: History of chronic left heel wound x 2 years. Has been seeing Dr. Sun in [place] for wound care. Reports that she was supposed to start hyperbaric therapy. X-ray in ED concerning for osteomyelitis of calcaneus. No fevers, or leukocytosis. MRI of left foot demonstrates osteomyelitis of calcaneus, likely chronic. - Podiatry consulted. She prefers conservative management. - ID consulted, appreciate recommendations - Patient given Clindamycin and Vancomycin in ED. Will hold off on antibiotics and defer to infectious disease. She received significant amounts of antibiotics as an outpatient already. - Will receive conservative wound care in [place] on discharge. - Dressings with 4X4, Kerlix, Braxton wrap. - Vascular Sx consulted, appreciate assistance - Angiogram shows appropriate arterial supply to left lower extremity - To be followed as an outpatient (2) CKD (chronic kidney disease) Diagnosis: Secondary Plan: Patient reports history of ESRD on hemodialysis. Last HD was 08/12/16. Presented with edema of lower extremities. Per property site manager Dr. Valdez, she did not truly have ESRD, just acute renal failure requiring temporary dialysis. Renal function on discharge at baseline. - F/u with Dr. Valdez (Nephrology) - Will follow up with vascular surgery as an outpatient regarding AV fistula (3) Hypertension Diagnosis: Secondary Plan: BP stable. Continue home antihypertensives. (4) COPD (chronic obstructive pulmonary disease) Diagnosis: Secondary Plan: No evidence of exacerbation. O2 stable on room air. Lung exam unremarkable. -Albuterol Q4h prn -Smoking cessation counseling provided (5) Diabetes Diagnosis: Secondary Plan: History of T2DM; states that she is on Levemir (unsure about the dose) and Novolog sliding scale at home. Serum glucose on admission 67. Subsequently stable this admission. - F/u with PCP (6) CHF (congestive heart failure) Diagnosis: Secondary Plan: Patient reports history of CHF. No evidence of exacerbation at this time. Lungs are clear on exam. -Continue to monitor -Caution with IVFs -Continue home dose of Lasix 60mg po BID (7) Normocytic anemia Diagnosis: Secondary Plan: Secondary to chronic kidney disease vs chronic infection. No obvious active bleeding. Hemodynamically stable. Consultants Podiatry - Lynda ID - Dr. Monteiro Vascular Sx - Dr. Rainey Brief History Patient is a 60 year old female with history of ESRD and diabetes who initially presented to ED for evaluation of generalized edema and now admitted for possible left calcaneus osteomyelitis. Patient is a poor historian. States that she has been getting dialysis at [facility]; however they told her that she would not need dialysis anymore. Last HD was on ThursdayAugust 12. However she feels like she is "blowing up again" secondary to fluid retention. Endorses worsening lower extremity edema. Work up in the ED showed that her renal function is actually stable with creatinine of 1.59. Electrolytes were within normal limits ; however it was noted that patient has a large ulcer on her left heel. X-ray was obtained and significant for possible osteomyelitis of calcaneus. Patient reports that ulcer has been there for 2 years. She follows up with Dr. Sun in [place] for wound care and has an appointment on for her first hyperbaric chamber treatment. States that ulcer looks better compared to the past since she has been going to wound care. Denies active drainage or bleeding from the ulcer. Pain in her heel is controlled. No associated symptoms such as fever, chills, LE redness, numbness, or weakness. She is able to ambulates around with a cane. CBC/BMP: 08/21/16 0723 08/21/16 0723 Significant Findings Laboratory Tests Test 08/19/16 08/20/16 08/21/16 08:40 13:50 07:23 Red Blood Count 3.84 MIL/MM3 3.43 MIL/MM3 (4.00-5.30) (4.00-5.30) Blood Urea Nitrogen 30 MG/DL (7-18) 31 MG/DL (7-18) 31 MG/DL (7-18) Creatinine 1.50 MG/DL 1.68 MG/DL 1.56 MG/DL (0.50-1.00) (0.50-1.00) (0.50-1.00) Estimat Glomerular Filtration 36 ML/MIN (>89) 31 ML/MIN (>89) 34 ML/MIN (>89) Rate Random Glucose 55 MG/DL 161 MG/DL (74-106) (74-106) Albumin 3.0 GM/DL (3.4-5.0) Hemoglobin 10.7 GM/DL (11.6-15.3) Hematocrit 32.6 % (35.0-46.0) Imaging Last Impressions Foot X-Ray 08/18/16 0000 Signed Impressions: Service Date/Time: Thursday, August 18, 2016 10:33 - CONCLUSION: Findings are concerning for possible osteomyelitis of the calcaneus with overlying ulceration. Micha Tobar MD Foot MRI 08/18/16 0000 Signed Impressions: Service Date/Time: Thursday, August 18, 2016 18:17 - CONCLUSION: Marrow edema in the calcaneus associated with the large calcaneal ulcer with very little if any skin covering evident. The patient has a significant pes planus deformity as well. Findings would be consistent with a osteomyelitis. Neurotrophic foot may also contribute to this process. Romario Pickering MD FACR PE at Discharge GENERAL: Lying in bed HEENT: NCAT, EOMI, no scleral icterus, no conjunctival injection. MMM. Poor dentition. NECK: Supple, no meningeal signs. CV: RRR, S1 S2. No murmurs CHEST/PULM: Good air movement. CTAB. No crackles. ABD/GI: +BS, soft, nondistended, nontender. Obese. EXT: 1+ pitting edema to mid mejia. Left heel as below. NEURO: Awake, alert. Normal muscle tone. SKIN: No rash, no jaundice. Large 5 x 7cm swallow ulceration on left heel with two small 1 cm deeper ulcers at the inferior aspect of heel. No active drainage or bleeding. Sensation and motor grossly intact. PSYCH: Awake, alert. Hospital Course Patient initially presented for concern of increased swelling, found on ED eval to have osteomyelitis of the left foot. On further discussion with patient, this is likely chronic. She was treated previously with IV antibiotics and is currently receiving hyperbaric O2 treatments at a wound care center in [place]. ID did not recommend additional antibiotics, and Podiatry recommended continuing outpatient management as already arranged. Suggested calcanectomy would be an option if patient desired, but she declined. Regarding her renal disease, she had been taken off dialysis on 08/12/16. After speaking to her property site manager this was found to be due to acute renal failure. BUN/Cr stable over this hospital stay without need for dialysis; patient is to follow up with her property site manager. She had been seeing vascular surgery as well for placement of an AV fistula (back when it was thought dialysis was going to continue for longer). Vascular to follow her for her fistula as well as her peripheral artery disease (currently no lesions requiring surgery). Pt Condition on Discharge: Stable Discharge Disposition: Disch w/ Home Health Serv Discharge Instructions DIET: Follow Instructions for: Renal Failure Diet Activities you can perform: Weight Bearing as Roseann Follow up Referrals: Nephrology - 1 Week with JUAN MANUEL Podiatry - 1 Week with patient's outpatient psychologist clinical Vascular Surgery - 2 Weeks with Yfn Rainey DO Wound Care Clinic - 1 Week Continued Medications: Albuterol 6.7 GM Inh (Proventil Hfa 6.7 GM Inh) 90 Mcg/Act Aer 2 PUFF INH Q6H PRN SHORTNESS OF BREATH #1 Ref 0 INHALER Amlodipine (Amlodipine) 5 Mg Tab 5 MG PO DAILY Blood Pressure Management #30 Ref 0 TAB Aripiprazole (Aripiprazole) 5 Mg Tab 5 MG PO DAILY #30 Ref 0 TAB Aspirin (Aspirin) 81 Mg Tabdr 81 MG PO DAILY TAB Furosemide (Furosemide) 20 Mg Tab 20 MG PO BID #60 Ref 0 TAB Furosemide (Furosemide) 40 Mg Tab 40 MG PO BID #60 Ref 0 TAB Hydrocodone-Acetaminophen (Lortab) 10-325 Mg Tab 1 TAB PO Q8HR PRN PAIN Ref 0 TAB Insulin Aspart Inj (Novolog Inj) 100 Unit/Ml Inj 2-12 UNITS SQ ACHS PER SLIDING SCALE Isosorbide Dinitrate (Isosorbide Dinitrate) 30 Mg Tab 30 MG PO DAILY Ondansetron (Ondansetron) 4 Mg Tab 8 MG PO Q6HR PRN NAUSEA Sucralfate (Sucralfate) 1 Gm Tab 1 GM PO QID on empty stomach Duodenal ulcer #120 Ref 0 TAB Topiramate (Topiramate) 25 Mg Tab 25 MG PO DAILY Control Seizures #60 Ref 0 TAB Valacyclovir (Valtrex) 1 Gm Tab 1000 MG PO HS Mgmt Viral Infection #30 Ref 0 TAB Barbra Braun MD 08/22/169: Discharge Summary Discharge Date: Aug 22, 2016 (CORRECTED DISCHARGE DATE) CBC/BMP: 08/21/16 0723 08/21/16 0723 Discharge Instructions Follow up Referrals: Nephrology - 1 Week with JUAN MANUEL Podiatry - 1 Week with patient's outpatient psychologist clinical Vascular Surgery - 2 Weeks with Yfn Rainey DO Wound Care Clinic - 1 Week Continued Medications: Albuterol 6.7 GM Inh (Proventil Hfa 6.7 GM Inh) 90 Mcg/Act Aer 2 PUFF INH Q6H PRN SHORTNESS OF BREATH #1 Ref 0 INHALER Amlodipine (Amlodipine) 5 Mg Tab 5 MG PO DAILY Blood Pressure Management #30 Ref 0 TAB Aripiprazole (Aripiprazole) 5 Mg Tab 5 MG PO DAILY #30 Ref 0 TAB Aspirin (Aspirin) 81 Mg Tabdr 81 MG PO DAILY TAB Furosemide (Furosemide) 20 Mg Tab 20 MG PO BID #60 Ref 0 TAB Furosemide (Furosemide) 40 Mg Tab 40 MG PO BID #60 Ref 0 TAB Hydrocodone-Acetaminophen (Lortab) 10-325 Mg Tab 1 TAB PO Q8HR PRN PAIN Ref 0 TAB Insulin Aspart Inj (Novolog Inj) 100 Unit/Ml Inj 2-12 UNITS SQ ACHS PER SLIDING SCALE Isosorbide Dinitrate (Isosorbide Dinitrate) 30 Mg Tab 30 MG PO DAILY Ondansetron (Ondansetron) 4 Mg Tab 8 MG PO Q6HR PRN NAUSEA Sucralfate (Sucralfate) 1 Gm Tab 1 GM PO QID on empty stomach Duodenal ulcer #120 Ref 0 TAB Topiramate (Topiramate) 25 Mg Tab 25 MG PO DAILY Control Seizures #60 Ref 0 TAB Valacyclovir (Valtrex) 1 Gm Tab 1000 MG PO HS Mgmt Viral Infection #30 Ref 0 TAB Tadeo Mckinney MD R1 Aug 21, 2016 18:47 Barbra Braun MD Aug 22, 2016 21:29
[2016-08-21 20:00] VITALS: BP 131/62; PULSE 121; RESP 20; TEMP 98.4; O2SAT 95
[2016-08-21] MEDS: valACYclovir HCL 500 MG TAB PO SCH (21:45)
[2016-08-22] VITALS: BP 117/73; PULSE 61; RESP 20; TEMP 97.6; O2SAT 93
[2016-08-22 04:00] VITALS: BP 126/59; PULSE 65; RESP 20; TEMP 98.4; O2SAT 92
[2016-08-22] MEDS: INSULIN ASPART SUPPLEMENTAL SCALE SQ SCH (07:30)
[2016-08-22 08:00] VITALS: BP 121/59; PULSE 119; RESP 20; TEMP 97.5; O2SAT 93
[2016-08-22] MEDS: TOPIRAMATE 25 MG TAB PO SCH (08:51)
[2016-08-22] MEDS: ARIPiprazole 5 MG TAB PO SCH (08:51)
[2016-08-22] MEDS: ASPIRIN EC 81 MG TABEC PO SCH (08:52)
[2016-08-22] MEDS: SUCRALFATE 1 GM TAB PO SCH (08:52)
[2016-08-22] MEDS: FUROSEMIDE 40 MG TAB PO SCH (08:52)
[2016-08-22] MEDS: amLODIPine BESYLATE 5 MG TAB PO SCH (08:54)
[2016-08-22] MEDS: ISOSORBIDE DINITRATE 10 MG TAB PO SCH (08:54)
[2016-08-22] MEDS: FUROSEMIDE 20 MG TAB PO SCH (08:55)
[2016-08-22] MEDS: ACETAMINOPHEN/HYDROcodone 325 MG/10 MG TAB PO PRN (09:13)
[2016-08-22] MEDS ORDERED: ZOFR4TAB PO (10:51)
--- NOTE | 2016-08-22 13:23 | HHI.FPPN ---
Subjective Remarks Sitting up in chair, no complaints this morning. Eager to go home. No chest pain or shortness of breath. No abdominal pain, nausea, vomiting, or diarrhea. (Lyle Bright MD R2) Objective Vitals Vital Signs Date Time Temp Pulse Resp B/P Pulse Ox O2 Delivery O2 Flow Rate FiO2 08/22/16 08:00 97.5 119 20 121/59 93 08/22/16 04:00 98.4 65 20 126/59 92 08/22/16 00:00 97.6 61 20 117/73 93 08/21/16 20:00 98.4 121 20 131/62 95 08/21/16 18:15 91 21 I/O 08/21/16 08/21/16 08/21/16 08/22/16 08/22/16 08/22/16 07:00 15:00 23:00 07:00 15:00 23:00 Intake Total 240 ml 120 ml Balance 240 ml 120 ml Intake Oral 240 ml 120 ml # Voids 2 1 1 3 # Bowel Movements 0 0 0 (Lyle Bright MD R2) Result Diagram: 08/21/1672208/21/16722 Objective Remarks GENERAL: Sitting up in chair HEENT: NCAT, EOMI, no scleral icterus, no conjunctival injection. MMM. Poor dentition. NECK: Supple, no meningeal signs. CV: RRR, S1 S2. No murmurs CHEST/PULM: Good air movement. CTAB. No crackles. ABD/GI: +BS, soft, nondistended, nontender. Obese. EXT: 1+ pitting edema to mid mejia. Left heel as below. NEURO: Awake, alert. Normal muscle tone. SKIN: No rash, no jaundice. Large 5 x 7cm swallow ulceration on left heel with two small 1 cm deeper ulcers at the inferior aspect of heel. No active drainage or bleeding. Sensation and motor intact. PSYCH: Awake, alert. (Lyle Bright MD R2) A/P Assessment and Plan 60 year old female with history of ESRD and diabetes who is admitted for evaluation of chronic osteomyelitis of left calcaneus. Discharge Planning Discharge today with follow up with Dr. Sun in [place] for wound care, and with vascular surgery regarding her AV fistula. (Lyle Bright MD R2) Attending Attestation Patient seen, examined, and discussed with resident team. I agree with assessment and management as documented and discussed with me. Pt without complaints. She requests zofran for nausea (she uses this at home) - prescription transmitted to pharmacy. Discharge home today. (Discharge not completed yesterday apparently because of transportation issues; medicine team not notified of this) (Barbra Braun MD) Problem List: (1) Osteomyelitis of foot Status: Chronic Plan: History of chronic left heel wound x 2 years. Has been seeing Dr. Sun in [place] for wound care. Reports that she was supposed to start hyperbaric therapy. X-ray in ED concerning for osteomyelitis of calcaneus. No fevers, or leukocytosis. MRI of left foot demonstrates osteomyelitis of calcaneus, likely chronic. - Podiatry consulted. She prefers conservative management. - ID consulted, appreciate recommendations - Patient given Clindamycin and Vancomycin in ED. Will hold off on antibiotics. She received significant amounts of antibiotics as an outpatient already. - Will receive conservative wound care in [place] on discharge. - Dressings with 4X4, Kerlix, Braxton wrap. - Vascular Sx consulted, appreciate assistance - Angiogram shows appropriate arterial supply to left lower extremity - To be followed as an outpatient (2) CKD (chronic kidney disease) Status: Acute Plan: Patient reports history of ESRD on hemodialysis. Last HD was 08/12/16. Presented with edema of lower extremities. Per technical sales engineer Dr. Valdez, she did not truly have ESRD, just acute renal failure requiring temporary dialysis. Renal function on discharge at baseline. - F/u with Dr. Valdez (Nephrology) - Will follow up with vascular surgery as an outpatient regarding AV fistula (3) Hypertension Status: Chronic Plan: BP stable. Continue home antihypertensives. (4) COPD (chronic obstructive pulmonary disease) Status: Chronic Plan: No evidence of exacerbation. O2 stable on room air. Lung exam unremarkable. -Albuterol Q4h prn -Smoking cessation counseling provided (5) Diabetes Status: Chronic Plan: History of T2DM; states that she is on Levemir (unsure about the dose) and Novolog sliding scale at home. Serum glucose on admission 67. Subsequently stable this admission. - F/u with PCP - Continue home meds on discharge. (6) CHF (congestive heart failure) Status: Chronic Plan: Patient reports history of CHF. No evidence of exacerbation at this time. Lungs are clear on exam. -Continue to monitor -Caution with IVFs -Continue home dose of Lasix 60mg po BID (7) Normocytic anemia Status: Chronic Plan: Secondary to chronic kidney disease vs chronic infection. No obvious active bleeding. Hemodynamically stable. (Lyle Bright MD R2) Problem Qualifiers (1) Osteomyelitis of foot: Qualified Code: M86.8X7 - Other osteomyelitis of left foot Lyle Bright MD R2 Aug 22, 2016 13:23 Barbra Braun MD Aug 22, 2016 21:32
[2016-09-26] MEDS ORDERED: HUMALOG SQ (11:52)
== END 2016-08-22 10:34 | disposition home health service (06) | DRG 638 ==
LOC: NEPE 09:56 → NEDA 11:14 → N05B 19:46
PROVIDERS: ADMIT Family Medicine; ATTEND Family Medicine
PROC: B41D1ZZ Fluoroscopy of Aorta and Bilateral Lower Extremity Arteries using Low Osmolar Contrast (ICD-10-PCS; principal; 2016-08-21 10:00)
DX: E11.69 Type 2 diabetes mellitus with other specified complication (principal); M86.672 Other chronic osteomyelitis, left ankle and foot; E11.22 Type 2 diabetes mellitus with diabetic chronic kidney disease; E11.621 Type 2 diabetes mellitus with foot ulcer; L97.429 Non-pressure chronic ulcer of left heel and midfoot with unspecified severity; I50.9 Heart failure, unspecified; Z99.2 Dependence on renal dialysis; I12.9 Hypertensive chronic kidney disease with stage 1 through stage 4 chronic kidney disease, or unspecified chronic kidney disease; J44.9 Chronic obstructive pulmonary disease, unspecified; I73.9 Peripheral vascular disease, unspecified; K21.9 Gastro-esophageal reflux disease without esophagitis; Z87.11 Personal history of peptic ulcer disease; M19.90 Unspecified osteoarthritis, unspecified site; F32.9 Major depressive disorder, single episode, unspecified; F41.9 Anxiety disorder, unspecified; J45.909 Unspecified asthma, uncomplicated; F17.210 Nicotine dependence, cigarettes, uncomplicated; D64.9 Anemia, unspecified; E66.9 Obesity, unspecified; E78.5 Hyperlipidemia, unspecified; Z88.0 Allergy status to penicillin; Z88.2 Allergy status to sulfonamides; Z91.040 Latex allergy status; N18.9 Chronic kidney disease, unspecified; Z79.4 Long term (current) use of insulin; Z80.0 Family history of malignant neoplasm of digestive organs; Z84.1 Family history of disorders of kidney and ureter
CPT/HCPCS: 36200; 36246; 73630; 73720; 75625; 75710; 80048; 80053; 82565; 82948; 84520; 85025; 85027; 85652; 86403; 87040; 87070; 87205; 90714; 93922; 99284; A9577; C1760; C1769; C1893; G0269; J1200; J1644; J1815; J2250; J3010; J3370; J7030; J7040; J7070

== ENCOUNTER 2016-09-11 09:55 | Day surgery (SDC) | payer MEDICARE, MEDICAID ==
[~2016-09-11] VITALS: Ht 162.6 cm; Wt 92.7 kg
[~2016-09-11 09:55] MED LIST changes: -ATOR20TA15 PO; -CALC667C PO; -FLUO40CA PO; -FLUT1SPR5 EACH NARE; +FURO20TA PO; +FURO40TA PO; -LANTUS2P SQ; -PERM5CRE11 TOPICAL; -RENATAB5 PO; +ZOFR4TAB PO
[2016-09-11] MEDS ORDERED: SODIUM CHLORIDE 0.9% FLUSH 10 ML FLUSH IV FLUSH PRN ×2 (10:30)
[2016-09-11] MEDS ORDERED: SODIUM BICARBONATE 100 MEQ in D5W 1000 ML IV SCH (10:30)
[2016-09-11] MEDS ORDERED: LACTTAB8 PO (10:41)
[2016-09-11] MEDS ORDERED: LIPI20TA PO (10:41)
[2016-09-11] MEDS ORDERED: TOPA25TA8 PO (10:41)
[2016-09-11] MEDS ORDERED: PANT40TA3 PO (10:41)
[2016-09-11] MEDS ORDERED: KLON2TAB PO (10:41)
[2016-09-11] MEDS ORDERED: PHOS667C5 PO (10:41)
[2016-09-11] MEDS ORDERED: ABIL5TAB6 PO (10:41)
[2016-09-11 10:59] LABS: PROTHROMBIN TIME - PATIENT 10.6 SEC (9.8-11.6)
[2016-09-11 11:00] LABS: AUTOMATED NEUTROPHIL # 7.2 TH/MM3 (1.8-7.7); BASOPHIL # 0.1 TH/MM3 (0-0.2); BASOPHIL % 0.6 % (0.0-2.0); EOSINOPHIL # 0.2 TH/MM3 (0-0.4); EOSINOPHIL % 1.8 % (0.0-4.0); HEMATOCRIT 40.8 % (35.0-46.0); HEMO FLAGS DIFF FINAL; LYMPHOCYTE # 2.7 TH/MM3 (1.0-4.8); MEAN CELL VOLUME 94.5 FL (80.0-100.0); MEAN CORPUSCULAR HEMOGLOBIN 31.5 PG (27.0-34.0); MEAN CORPUSCULAR HGB CONC 33.4 % (32.0-36.0); MONO % 6.6 % (0.0-8.0); PLATELET COUNT 208 TH/MM3 (150-450); RED BLOOD COUNT 4.32 MIL/MM3 (4.00-5.30); RED CELL DISTRIBUTION WIDTH 15.3 % (11.6-17.2); WHITE BLOOD COUNT 10.9 TH/MM3 (4.0-11.0)
[2016-09-11 11:06] LABS: POTASSIUM 3.8 MEQ/L (3.5-5.1)
[2016-09-11] MEDS ORDERED: IOHEXOL 350 MG/ML 100 ML BTL (for Cath Lab) OTHER ONE (14:36)
[2016-09-11] MEDS ORDERED: MIDAZOLAM HCL 2 MG/2 ML VIAL ONE (15:29)
[2016-09-11] MEDS ORDERED: HEPARIN SODIUM - IV 10,000 UNITS/10 ML VIAL ONE (16:14)
[2016-09-11] MEDS ORDERED: HEPARIN-NS/PF INJ 500 ML ONE (16:19)
--- NOTE | 2016-09-11 16:49 | CATHPROC ---
[employer] HIS Report Study Information Study Number Scheduled Start Study Start [id number] 09/11/2016 Sep 11 2016 2:50PM Referring Institution Admit Source Facility Department 1 Other [facility] - Test Case Developer Physician and Clinical Staff Initial Yfn Whitney Sales Technician Home Theater Brett Holm,SOLANGE Other cathlab, cathlab Other Analilia Castano,RT(R) Recorder Gray Johnson RCIS(BS) Scrub Leonides AcevesRT(R) Procedures Performed Procedure Location (Site) Vessel Name Angiogram (manual) Brach. Vein (right) Brachial Vein Angiogram (manual) Fistula Arterial Graft Angiogram (manual) Subclav. Vein (Rt) Subclavian Vein Angiogram (manual) SVC Vena Cava PAINT FACTORY WORKER Fistula Arterial Graft Wire insertion Fistula Arterial Graft Equipment Time Demi Chef Description Size Mfg Part Number Used/Scraped CATHETER, FR4 BERENSTEIN 15:55 ANGIO-DYNAMICS FR 4 [id number] Used 65CM BALLOON, CONQUEST 5 X 40 16:17 BARD 5 X 40 [id number] Used 75CM INTRODUCER SET, MPIS-502-10.0- 14:51 [employer]. FR 5 Used MICROPUNCTURE, STIFFENED SC-NT-U-SST 15:56 CORDIS/ [place] SHEATH, FR6 BRITE TIP 11CM FR 6 11CM [id number] Used MARINE POLYMER 14:51 PATCH, SYVEK EXCEL (PACER) 400-16-05 Used TECHNOLOGIES 14:51 [employer] WIREMARGARET .035 260CM 260CM [id number] Used 14:51 Thermodynamic Process Control PACK, CCL CUSTOM * [id number] Used 16:13 ALOHA 30 STEPHANY INDEFLATOR [id number] Used PROBE COVER, STERILE 16:00 [facility] * [id number] Used ULTRASOUND W/ GEL PROBE COVER, STERILE 15:18 MICR[employer] MED[employer] * [id number] Used ULTRASOUND W/ GEL 14:51 NAMIC TUBING, HIGH PRESSURE 20" 20" [id number] Used 14:51 NYCOMED OMNIPAQUE, 300 MG, 100ML 100ML [id number] Used SUTURE, 2-0 VICRYL [SH] ([id number]) WIRE, ANGLE GLIDE STIFF .035 15:52 [employer]/[place] 260CM [id number] Used 260CM Equipment Model, Serial, Lot Number and Expiration Data Description Model Number Serial Number Lot Number Expiration Date PROBE COVER, STERILE [id number] 09-07-2019 ULTRASOUND W/ GEL History: Allergies Allergy Reaction Latex rash Penicillin Rash Sulfa itching, vomiting Bacitracin Labs Hgb (g/dl) Hct (%) WBC (l/cumm) Platelets (thousands) 12.00-18.00 37.00-55.00 4.80-10.80 140.00-450.00 13.6 40.8 10.9 208 Glucose (mg/dl) BUN (mg/dl) Creatinine (mg/dl) BUN:Creatinine (1:x) 60.00-110.00 8.00-20.00 0.10-9.00 10.00-20.00 212 80 2.3 34.8 Na (meq/l) K (meq/l) 138.00-146.00 3.80-5.10 137 3.8 INR (PTT:PT) 0.50-2.00 1 CPK-MB (ng/ML) 0.00-7.00 Not Drawn Medication Medication Total Dose (Bolus/Oral) Medication Total Dosage/Unit 1% XYLOCAINE 20 mL FENTANYL 50 mcg HEPARIN 3000 units VERSED 2 mg Medications (Bolus/Oral) Medication Time Given Dosage/Unit Administered By Reason VERSED 09/11/2016 3:40:48 PM 2 mg Brett Holm 2 mg VERSED given in lab by Brett Holm RN in Left Hand via Peripheral IV. Ordered by Binu Rainey 1% XYLOCAINE 09/11/2016 3:43:15 PM 20 mL Yfn Rainey 20 mL 1% XYLOCAINE given in lab by Yfn Rainey in Right Antecubital via Subcutaneous. FENTANYL 09/11/2016 3:48:14 PM 50 mcg Yfn Rainey 50 mcg FENTANYL given in lab by Yfn Rainey in Left Hand via Peripheral IV. HEPARIN 09/11/2016 4:16:00 PM 3000 units Brett Holm 3000 units HEPARIN given in lab by Brett Holm RN in Left Hand via Peripheral IV. Medication (Drip) Medication Time Given Dosage/Unit Concentration/Unit Diluent (ml) Solution IV Solutions 09/11/2016 2:56:57 PM 0 mL (IV) 500 NaCl .9 Patient arrived on IV Solutions in Left Antecubital via Peripheral IV. Pump/Drip Flow = 20 ml/hr usin g NaCl .9. Initial Case Assessment Cardiovascular HR Rhythm NIBP Chest Pain 54 SINUS 126/73 0 Edema Present Skin color Skin None Normal Warm Dry Neurological State Oriented to time-place- Alert Moves all extremities person Respiration - General Respiration Rate SpO2 (%) (B/min) 15 99 Initial Case Assessment Cardiovascular HR Rhythm NIBP Chest Pain 57 SINUS 129/69 0 Edema Present Skin color Skin None Normal Warm Dry Neurological State Oriented to time-place- Alert Moves all extremities person Respiration - General Respiration Rate SpO2 (%) (B/min) 15 99 Chronological Log Time Study Chronological Log 14:56:44 Patient arrived via Bed. 14:56:45 Patient Name, D.O.B, / Armband Verified By R.N. 14:56:46 Consent signed by the physician and the patient and verified by the Test Case Developer staff. 14:56:47 Pre-op and post- op instructions given; patient acknowledges understanding of instructions. 14:56:47 Verbal Stimulation=2 Physical Stimulation=2 Airway=2 Respiration=2 TOTAL=8. (0=absent, 1=li mited, 2=present) 14:56:48 Presedation assessment performed by Test Case Developer RN. 14:56:49 Immediate Presedation assesment performed by physician. 14:56:49 Patient has been NPO for More than 6Hrs. 14:56:50 Skin Breakdown-none per patient 14:56:54 Patient Warmer Placed on the Table. 14:56:56 Isma Prominences Protected 14:56:57 A # 20 IV was noted in the Antecubital (left). Grade = 0. NOT FUNCTIONING. 14:56:57 Patient arrived on IV Solutions in Left Antecubital via Peripheral IV. Pump/Drip Flow = 20 ml/hr using NaCl .9. 14:57:01 History and physical on the chart or being dictated. Vitals capture started with the following parameters, Patient=Adult, Interval=5 min, Initial Pr rytgvt=199 mmHg, 15:06:10 Deflation Rate=5 mmHg Assessment: Initial Case, HR=54 BPM, Rhythm=SINUS, GDHA=941/73 mmhg, Chest Pain=0, Edema=None, Color=Normal, Skin = Warm, Dry 15:06:34 Neurological: State=Alert, Ox3, LUZ Respiration: Resp=15 B/min, SpO2=99 % 15:06:51 HR=55 bpm, YZHK=058/73 mmhg, SpO2=99.0 %, Resp=14 B/min, Pain=0, Shaheed=10, Dailey=2 15:11:46 HR=57 bpm, XAZK=635/69 mmhg, SpO2=96.0 %, Resp=17 B/min, Pain=0, Shaheed=10, Dailey=2 15:12:12 Right arm and shoulder prepped with 2% chlorhexidine, and with a 3 min. waiting time. 15:13:58 Vitals capture stopped. 15:26:18 A # 20 IV was started in the Hand (left). Grade = 0 15:28:38 MD paged 15:38:30 MD arrived. 15:38:35 Immediate Presedation assesment performed by physician. 15:40:48 2 mg VERSED given in lab by Brett Holm RN in Left Hand via Peripheral IV. Ordered by Yfn Llamas. 15:41:56 Contrast Scanned Time Out. Correct patient, correct procedure,correct physician, ,power injector not loaded with contrast with surgical 15:42:12 team present. Time Out Concurred by , individual staff in procedure 15:42:24 Case Start 15:42:25 Verbal Stimulation=2 Physical Stimulation=2 Airway=2 Respiration=2 TOTAL=8. (0=absent, 1=li mited, 2=present) 15:43:15 20 mL 1% XYLOCAINE given in lab by Yfn Rainey in Right Antecubital via Subcutaneous. 15:46:00 Access site was Other Artery. FISTULA. A INTRODUCER SET, MICROPUNCTURE, STIFFENED FR 5 was advanced into the Fistula using the Percuta neous 15:46:33 technique. 15:48:14 50 mcg FENTANYL given in lab by Yfn Rainey in Left Hand via Peripheral IV. 15:49:53 Brach. Vein (right) angiogram, manually injected. 15:50:11 Subclav. Vein (Rt) angiogram, manually injected. 15:50:18 SVC angiogram, manually injected. 15:55:41 Access lost, holding pressure. 16:01:48 Hemostasis achieved. 16:07:11 Access site was Other Artery. A INTRODUCER SET, MICROPUNCTURE, STIFFENED FR 5 was advanced into the Fistula using the Percuta neous 16:07:14 technique. A SHEATH, FR6 BRITE TIP 11CM FR 6 11CM was exchanged in the Fistula. This was necessary in orde r to accomodate 16:07:49 a larger catheter. 16:09:33 A WIRE, ANGLE GLIDE STIFF .035 260CM 260CM was inserted via Fistula. A CATHETER, FR4 BERENSTEIN 65CM FR 4 was advanced over a wire. OMNIPAQUE, 300 MG, 100ML 100ML w as used 16:10:57 for injections. A BALLOON, CONQUEST 5 X 40 75CM 5 X 40 was inserted over WIRE, ANGLE GLIDE STIFF .035 260CM 260 CM via the 16:15:25 Fistula. 16:16:00 3000 units HEPARIN given in lab by Brett Holm RN in Left Hand via Peripheral IV. 16:17:44 In the Fistula a BALLOON, CONQUEST 5 X 40 75CM 5 X 40 was inflated to 6 atms for 120 second s. 16:22:51 Balloon Removed. 16:23:39 In the Fistula a BALLOON, CONQUEST 5 X 40 75CM 5 X 40 was inflated to 16 atms for 60 second s. 16:30:26 Balloon Removed. A CATHETER, FR4 BERENSTEIN 65CM FR 4 was advanced over a wire. OMNIPAQUE, 300 MG, 100ML 100ML w as used 16:30:40 for injections. 16:31:55 Fistula angiogram, manually injected. 16:33:19 Catheter was removed w/o difficulty 16:34:22 Site sutured. 16:35:19 Sheath removed; pressure applied to access site. 16:37:46 Case End Assessment: Initial Case, HR=57 BPM, Rhythm=SINUS, KYNM=040/69 mmhg, Chest Pain=0, Edema=None, Color=Normal, Skin = Warm, Dry 16:37:54 Neurological: State=Alert, Ox3, LUZ Respiration: Resp=15 B/min, SpO2=99 % 16:38:11 Sterile dressing applied to site. SYVEK AND TEGADERM. 16:38:12 No case complications noted. 16:38:13 Cine recording checked. 16:38:14 Bedside Report will be given. 16:38:17 Verbal Stimulation=2 Physical Stimulation=2 Airway=2 Respiration=2 TOTAL=8. (0=absent, 1=l imited, 2=present) 16:48:43 Patient moved to [facility] End Study - Contrast Media Used In Study Contrast Total Opened (mL) Total Used (mL) Total Wasted (mL) Omnipaque 70 70 0 End Study - Maximum Contrast Load Max Contrast Load (mL) 201.6 End Study - Radiation Exposure Fluoro Time (minutes) 9.1 End Study - Patient Disposition Complications Transferred To Interventional Outcome No Test Case Developer Holding successful
--- NOTE | 2016-09-11 17:43 | MA ---
cc: ELIZABETH LEBLANC DATE: 09/11/2016 TYPE OF PROCEDURE: Fistulogram. PREOPERATIVE DIAGNOSIS Non maturing right upper extremity AV fistula POSTOPERATIVE DIAGNOSIS Non maturing right upper extremity AV fistula with a rui Anastomotic stenosis. PROCEDURE: 1. Fistulogram right upper extremity. 2. Balloon angioplasty of right upper extremity, basilic vein with a 5 mm x 40 mm wide complex balloon. PROCEDURE The patient's right upper extremity prepped and prepped in sterile fashion after being under moderate sedation. I got access to the right upper extremity basilic vein using duplex ultrasound with a 21-gauge needle, exchanged over a wire 4-Croatian micropuncture catheter and exchanged for 6-Croatian sheath. I shot a fistulogram which showed that there was minimal pulsatile flow through the basilic vein of my initial exam and that the basilic vein was widely patent. The right axillary and subclavian vein as well as the innominate vein appeared to be patent. There was a catheter at the level of the innominate vein. I had difficulty advancing a wire across my anastomosis. I used a stiff angled Glidewire and then got my wire in the what appeared to be the radial artery across the anastomosis just distal to have anastomosis at the site of some clips. There appeared to be a narrowing I performed my balloon angioplasty with a 5 x 4 mm balloon. After giving 3000 units of heparin. After I had to do two balloon inflations there was really minimal waist and there was a palpable thrill it was not felt before in the fistula distal to this area. The patient tolerated procedure well. At the end of procedure I put a place to 2-0 Vicryl stitch in the right upper extremity and applied pressure. The patient was sent back to the postoperative care unit. DO RIGOBERTO Rodarte/zoie /4:46 PM /5:25 PM
[2016-09-26] MEDS ORDERED: HUMALOG SQ (11:52)
== END 2016-09-11 18:41 | disposition home or self-care (01) ==
LOC: HDOC 09:55 → HDIC 09:57 → HDOC 18:41
PROVIDERS: ATTEND Surgery
DX: T82.858A Stenosis of other vascular prosthetic devices, implants and grafts, initial encounter (principal); N18.6 End stage renal disease; Z01.818 Encounter for other preprocedural examination
CPT/HCPCS: 37248; 75716; 80048; 85025; 85610; C1725; C1760; C1769; C1887; C1893; J1644; J2250; J3010; Q9967

== ENCOUNTER 2016-09-18 16:25 | Emergency (ER) | payer MEDICARE, MEDICAID ==
[~2016-09-18] VITALS: Ht 162.6 cm; Wt 92.0 kg
[~2016-09-18 16:25] MED LIST changes: +ABIL5TAB6 PO; -FURO40TA PO; +KLON2TAB PO; +LACTTAB8 PO; +LIPI20TA PO; +PANT40TA3 PO; +PHOS667C5 PO; +TOPA25TA8 PO; -ZOFR4TAB PO
[2016-09-18 16:50] VITALS: BP 154/63; PULSE 49; RESP 16; TEMP 99; O2SAT 96
--- NOTE | 2016-09-18 17:41 | RADRPT ---
EXAM DATE/TIME: 09/18/2016 17:10 [facility] COMPARISON: CHEST SINGLE AP, August 11, 2016, 9:31. INDICATIONS : Fever. MEDICAL HISTORY : Congestive heart failure. Diabetes mellitus type II. Renal failure, acute. SURGICAL HISTORY : Dialysis port. ENCOUNTER: Sequela ACUITY: 1 day PAIN SCORE: 0/10 LOCATION: Bilateral chest FINDINGS: A single view of the chest demonstrates bilateral atelectatic changes in the right base and left ling mary. No effusions. Heart size is normal. Right IJ dialysis type catheter projects over the central ve nous system. Osseous structures are intact. CONCLUSION: 1. Bilateral atelectatic changes. 2. No confluent infiltrate or effusion. Ajit Smith MD on September 18, 2016 at 17:36 Board Certified Radiologist. This report was verified electronically.
[2016-09-18] MEDS ORDERED: ONDA1TAB17 PO (18:09)
[2016-09-18] MEDS ORDERED: ISOS30TA3 PO (18:09)
[2016-09-18 18:11] LABS: BASOPHIL # 0.1 TH/MM3 (0-0.2); BASOPHIL % 0.5 % (0.0-2.0); EOSINOPHIL # 0.2 TH/MM3 (0-0.4); EOSINOPHIL % 1.6 % (0.0-4.0); HEMATOCRIT 37.3 % (35.0-46.0); HEMO FLAGS DIFF FINAL; LYMPH % 11.1 % (9.0-44.0); LYMPHOCYTE # 1.2 TH/MM3 (1.0-4.8); MEAN CELL VOLUME 95.7 FL (80.0-100.0); MEAN CORPUSCULAR HEMOGLOBIN 31.6 PG (27.0-34.0); MONO % 6.6 % (0.0-8.0); NEUT % 80.2 % (16.0-70.0); PLATELET COUNT 120 TH/MM3 (150-450); RED BLOOD COUNT 3.89 MIL/MM3 (4.00-5.30); RED CELL DISTRIBUTION WIDTH 15.1 % (11.6-17.2); WHITE BLOOD COUNT 11.2 TH/MM3 (4.0-11.0)
[2016-09-18 18:20] LABS: APTT (PATIENT) 27.8 SEC (24.3-30.1); PROTHROMBIN TIME - PATIENT 11.4 SEC (9.8-11.6)
[2016-09-18 18:28] LABS: ALT (GPT) 15 U/L (10-53); ANION GAP 6 MEQ/L (5-15); AST (GOT) 14 U/L (15-37); BICARBONATE 27.9 MEQ/L (21.0-32.0); BLOOD UREA NITROGEN 40 MG/DL (7-18); CHLORIDE 103 MEQ/L (98-107); GLOMERULAR FILTRATION RATE 24 ML/MIN (>89); POTASSIUM 3.8 MEQ/L (3.5-5.1); SODIUM (NA) 137 MEQ/L (136-145)
[2016-09-18 18:31] LABS: ALKALINE PHOSPHATASE 110 U/L (45-117); TOTAL BILIRUBIN ADULT 0.6 MG/DL (0.2-1.0)
--- NOTE | 2016-09-18 18:57 | RADRPT ---
EXAM DATE/TIME: 09/18/2016 17:57 [facility] COMPARISON: No previous studies available for comparison. INDICATIONS : Right arm pain. MEDICAL HISTORY : Congestive heart failure. Peripheral vascular disease. Diabetes mellitus type 2. Right glaucoma. Seiz ures. HTN. COPD. Asthma. Ulcer. GERD. Hiatal hernia. ESRD. Arthritis. Scabies. Genital herpes. Depres grey. Anxiety. Anticoagulant therapy, Aspirin 81mg. SURGICAL HISTORY : Tonsillectomy. Eye growth removed as child. Radial cath. Right upper chest port. Dialysis. Left br east abscess removed. Blood transfusions. ENCOUNTER: Initial ACUITY: 1 week PAIN SCORE: 8/10 LOCATION: Right arm. FINDINGS: A patent brachial basilic AV fistula is present. There is spontaneous flow documented in the brachial , basilic, cephalic, axillary, and subclavian veins. The vessels are compressible and augmentation r esponse is documented. No filling defects are seen. The flow is phasic with respiration. Direction of flow in the jugular vein is caudal. CONCLUSION: No evidence of right upper extremity DVT Jimenez Ledbetter MD on September 18, 2016 at 18:52 Board Certified Radiologist. This report was verified electronically.
[2016-09-18 19:00] VITALS: BP 143/77; PULSE 80; RESP 16
[2016-09-18] MEDS ORDERED: LOPERAMIDE HCL 2 MG CAP PO ONE (19:30)
--- NOTE | 2016-09-18 19:33 | PD ---
HPI Chief Complaint: GI Complaint Time Seen by Provider: 19:32 Travel History International Travel<30 days: No Contact w/Intl Traveler<30days: No Traveled to known affect area: No History of Present Illness HPI 60-year-old female that presents to the ED via ambulance for evaluation of diarrhea and pain to the right arm. Patient came here by ambulance for evaluation of this. Patient is somewhat of a poor historian. Unclear as to why she is here. From what I can get she apparently has no transportation to go to the pharmacy to get her prescription of Cipro as well as Imodium to help her with her diarrhea. Per patient she is also concerned because when she never she had the diarrhea last time she was told that she had kidney failure and that is when she started having the dialysis. Per patient she has a history of a ESRD and she is to have dialysis but she has not had any dialysis for the past 6 months secondary to not needing it. Per patient she had recent surgery to get a fistula on her right upper arm. Patient had this surgery on September 09. This was done by Dr. Fuentes. Patient's concerned because she has a burning sensation to the area. She denies any fevers chills or sweats. No cough or runny nose. Per patient her bowels are liquidy. She denies any recent admission to the hospital. She does have a history of chronic osteomyelitis on the left foot but denies any issues with this. She does have allergies to penicillin, sulfa, basically tracing, latex. She denies any chest pain or shortness of breath. No abdominal pain. Per patient her pain in her arm is 4 out of 10. She denies any nausea or vomiting. She denies any vaginal discharge. No other issues. PFSH Past Medical History Arthritis: Yes (BACK) Asthma: Yes Anxiety: Yes Depression: Yes Cancer: No Cardiovascular Problems: Yes Congestive Heart Failure: Yes COPD: Yes Diabetes: Yes (type 2) Patient Takes Glucophage: Yes Dialysis: Yes (short term for 6 months) Endocrine: No GERD: Yes Glaucoma: Yes (right) Genitourinary: Yes (chronic kidney disease) Headaches: Yes Hepatitis: No Hiatal Hernia: Yes Hypertension: Yes Immune Disorder: No Medical other: Yes (genital herpes) Musculoskeletal: Yes Neurologic: Yes Psychiatric: Yes (anxiety, depression) Reproductive: No Respiratory: Yes Seizures: Yes (10 YEARS AGO) Thyroid Disease: No Ulcer: Yes Past Surgical History Abdominal Surgery: No AICD: No Body Medical Devices: right upper chest port Ear Surgery: No Endocrine Surgery: No Eye Surgery: Yes (GROWTH REMOVED A CHILD) Genitourinary Surgery: No Gynecologic Surgery: No Joint Replacement: No Oral Surgery: Yes (TONSILECTOMY) Pacemaker: No Thoracic Surgery: Yes (right upper chest port-dialysis, abscess removed from L breast) Other Surgery: Yes Social History Alcohol Use: No Tobacco Use: Yes (2 cigs every day) Substance Use: No Allergies-Medications (Allergen,Severity, Reaction): Coded Allergies: Latex (Verified Allergy, Severe, rash, 09/11/16) Penicillin (Verified Allergy, Severe, Rash, 09/11/16) Sulfa (Verified Allergy, Severe, itching, vomiting, 09/11/16) Bacitracin (Verified Allergy, Unknown, 09/11/16) Reported Meds & Prescriptions Reported Meds & Active Scripts Active Cipro (Ciprofloxacin HCl) 500 Mg Tab 500 Mg PO BID 7 Days Imodium A-D (Loperamide HCl) 2 Mg Cap 2 Mg PO DIRECTED PRN 5 Days One capsule after each loose stool. Not to exceed 8 tablets per day. Reported Ondansetron (Ondansetron HCl) 8 Mg Tab 8 Mg PO Q6HR PRN Isosorbide Mononitrate ER (Isosorbide Mononitrate) 30 Mg Aaron 30 Mg PO DAILY Pantoprazole (Pantoprazole Sodium) 40 Mg Tab 40 Mg PO DAILY Lactobacillus Acidophilus 1 Tab Tab 1 Tab PO TIDAC Klonopin (Clonazepam) 2 Mg Tab 2 Mg PO BID Phoslo (Calcium Acetate (Phosphate Binder)) 667 Mg Cap 667 Mg PO TID Lipitor (Atorvastatin Calcium) 20 Mg Tab 20 Mg PO HS Furosemide 20 Mg Tab 20 Mg PO BID Aripiprazole 5 Mg Tab 5 Mg PO DAILY Valtrex (Valacyclovir HCl) 1 Gm Tab 1,000 Mg PO HS Topiramate 25 Mg Tab 25 Mg PO DAILY Sucralfate 1 Gm Tab 1 Gm PO QID on empty stomach Proventil Hfa 6.7 GM Inh (Albuterol Sulfate) 90 Mcg/Act Aer 2 Puff INH Q6H PRN Novolog Inj (Insulin Aspart) 100 Unit/Ml Inj 2-12 Units SQ ACHS PER SLIDING SCALE Lortab (Hydrocodone-Acetaminophen) 10-325 Mg Tab 1 Tab PO Q8HR PRN Aspirin 81 Mg Tabdr 81 Mg PO DAILY Amlodipine (Amlodipine Besylate) 5 Mg Tab 5 Mg PO DAILY Review of Systems Except as stated in HPI: all other systems reviewed are Neg Physical Exam Narrative GENERAL: SKIN: Warm and dry. HEAD: Atraumatic. Normocephalic. EYES: Pupils equal and round. No scleral icterus. No injection or drainage. ENT: No nasal bleeding or discharge. Mucous membranes pink and moist. Tongue is midline. No uvula deviation. NECK: Trachea midline. No JVD. CARDIOVASCULAR: Regular rate and rhythm. No murmurs, S3, S4. RESPIRATORY: No accessory muscle use. Clear to auscultation. Breath sounds equal bilaterally. GASTROINTESTINAL: Abdomen soft, non-tender, nondistended. Hepatic and splenic margins not palpable. MUSCULOSKELETAL: Extremities without clubbing, cyanosis, or edema. No obvious deformities. Full range of motion of the upper and lower extremities bilaterally. 2+ pulses bilaterally. Patient does have a fistula with palpable thrills on the right upper arm. No sign of infection or deformity noted. Patient does have a dressing on top of that I was replaced. NEUROLOGICAL: Awake and alert. No obvious cranial nerve deficits. Motor grossly within normal limits. Five out of 5 muscle strength in the arms and legs. Normal speech. PSYCHIATRIC: Appropriate mood and affect; insight and judgment normal. Data Data Last Documented VS Vital Signs Date Time Temp Pulse Resp B/P Pulse Ox O2 Delivery O2 Flow Rate FiO2 09/18/16 16:50 99.0 49 16 154/63 96 Orders Electrocardiogram (09/18/16 16:59) Complete Blood Count With Diff (09/18/16 16:59) Comprehensive Metabolic Panel (09/18/16 16:59) Prothrombin Time / Inr (Pt) (09/18/16 16:59) Act Partial Throm Time (Ptt) (09/18/16 16:59) Blood Culture (09/18/16 16:59) Lipase (09/18/16 16:59) Urinalysis - C+S If Indicated (09/18/16 16:59) Cath For Specimen (09/18/16 16:59) Chest, Single Ap (09/18/16 16:59) Iv Access Insert/Monitor (09/18/16 16:59) Ecg Monitoring (09/18/16 16:59) Oximetry (09/18/16 16:59) Us Arm Venous Doppler (09/18/16 ) Lactic Acid (09/18/16 16:59) Loperamide (Imodium) (09/18/16 19:30) Wound Care (09/18/16 19:42) Urine Culture (09/18/16 19:20) Ciprofloxacin (Cipro) (09/18/16 20:15) Labs Laboratory Tests Test 09/18/16 09/18/16 17:55 19:20 White Blood Count 11.2 TH/MM3 Red Blood Count 3.89 MIL/MM3 Hemoglobin 12.3 GM/DL Hematocrit 37.3 % Mean Corpuscular Volume 95.7 FL Mean Corpuscular Hemoglobin 31.6 PG Mean Corpuscular Hemoglobin 33.0 % Concent Red Cell Distribution Width 15.1 % Platelet Count 120 TH/MM3 Mean Platelet Volume 9.3 FL Neutrophils (%) (Auto) 80.2 % Lymphocytes (%) (Auto) 11.1 % Monocytes (%) (Auto) 6.6 % Eosinophils (%) (Auto) 1.6 % Basophils (%) (Auto) 0.5 % Neutrophils # (Auto) 9.0 TH/MM3 Lymphocytes # (Auto) 1.2 TH/MM3 Monocytes # (Auto) 0.7 TH/MM3 Eosinophils # (Auto) 0.2 TH/MM3 Basophils # (Auto) 0.1 TH/MM3 CBC Comment DIFF FINAL Differential Comment Prothrombin Time 11.4 SEC Prothromb Time International 1.0 RATIO Ratio Activated Partial 27.8 SEC Thromboplast Time Sodium Level 137 MEQ/L Potassium Level 3.8 MEQ/L Chloride Level 103 MEQ/L Carbon Dioxide Level 27.9 MEQ/L Anion Gap 6 MEQ/L Blood Urea Nitrogen 40 MG/DL Creatinine 2.10 MG/DL Estimat Glomerular Filtration 24 ML/MIN Rate Random Glucose 216 MG/DL Lactic Acid Level 1.0 mmol/L Calcium Level 9.0 MG/DL Total Bilirubin 0.6 MG/DL Aspartate Amino Transf 14 U/L (AST/SGOT) Alanine Aminotransferase 15 U/L (ALT/SGPT) Alkaline Phosphatase 110 U/L Total Protein 7.4 GM/DL Albumin 3.1 GM/DL Lipase 78 U/L Urine Color YELLOW Urine Turbidity HAZY Urine pH 5.0 Urine Specific Sidman 1.009 Urine Protein NEG mg/dL Urine Glucose (UA) NEG mg/dL Urine Ketones NEG mg/dL Urine Occult Blood SMALL Urine Nitrite NEG Urine Bilirubin NEG Urine Urobilinogen LESS THAN 2.0 MG/DL Urine Leukocyte Esterase LARGE Urine RBC 55 /hpf Urine WBC 98 /hpf Urine Squamous Epithelial 1 /hpf Cells Urine Bacteria RARE /hpf Urine Hyaline Casts 29 /lpf Urine Mucus FEW /lpf Microscopic Urinalysis Comment CULTURE INDICATED MDM Medical Decision Making Medical Screen Exam Complete: Yes Emergency Medical Condition: Yes Medical Record Reviewed: Yes Interpretation(s) CBC & BMP Diagram 09/18/16 17:55 LFTS WNL Lipase WNL Last Impressions Chest X-Ray 09/18/16 1659 Signed Impressions: Service Date/Time: , September 18, 2016 17:10 - CONCLUSION: 1. Bilateral atelectatic changes. 2. No confluent infiltrate or effusion. Ajit Smith MD Upper Extremity Ultrasound 09/18/16 0000 Signed Impressions: Service Date/Time: , September 18, 2016 17:57 - CONCLUSION: No evidence of right upper extremity DVT Jimenez Ledbetter MD UA shows UTI Differential Diagnosis Diarrhea versus chronic kidney disease versus infection versus chronic pain versus postsurgical pain Narrative Course 60-year-old female that presents to the ED for evaluation of diarrhea and right arm pain. Patient was properly examined and was found to have signs and symptoms that appear to be postsurgical pain after fistula surgery. My attending evaluated the patient and agrees with plan. Ultrasound was ordered. Ultrasound was negative. Lab work was ordered to make sure patient doesn't have any other acute disease. She does appear to have an elevated BUN and creatinine but this appears to be stable from prior. Her BUN actually is improved. Do not see any need for emergent dialysis. My attending Dr. Harrison agrees with this. Dr. Harrison recommended I speak with patient's vascular surgeon to let him know about the pain and to see whether anything needed to be done. Patient does have UTI, given 500 mg dose of Cipro here and prescription for this , which she aparently was prescribed already but has not filled. Her Creatine clearance was measured and it was 32 adjusting for weight. Per uptodate safe to give 250-500 mg BID of Cipro. So she was given 500 mg here and prescriptions for it as well. Diagnosis Primary Impression: UTI (urinary tract infection) Qualified Code: N30.00 - Acute cystitis without hematuria Additional Impression: AV fistula Referrals: Yfn Rainey V. DO Patient Instructions: General Instructions Additional Instructions: F/u with your vascular surgeon. Get prescriptions filled and take your meds. See ED if worsening symptoms F/u with PCP. Med/Other Pt SpecificInfo: Prescription(s) given Scripts Ciprofloxacin (Cipro)500 Mg Rug401 Mg PO BID 7 Days Prov:Diego Cervantes MD 09/18/16 Loperamide (Imodium A-D)2 Mg Cap2 Mg PO DIRECTED PRN (DIARRHEA) 5 Days Ref 0 One capsule after each loose stool. Not to exceed 8 tablets per day. Prov:Diego Cervantes MD 09/18/16 Disposition: 01 DISCHARGE HOME Condition: Stable Audi Malone September 18, 2016 19:33
[2016-09-18] MEDS ORDERED: LOPE7.5C PO (19:50)
[2016-09-18 20:01] LABS: BACTERIA, URINE RARE /hpf; BLOOD, URINE SMALL (NEG); COMMENT (UR) CULTURE INDICATED; CULTURE IF INDICATED CULTURE INDICATED; GLUCOSE,URINE NEG (NEG); HYALINE CAST, URINE 29 /lpf (RARE); KETONE, URINE NEG (NEG); MUCUS URINE FEW /lpf (OCC); NITRITE,URINE NEG (NEG); SQUAMOUS EPITHELIAL CELL URINE 1 /hpf (0-5); URINE COLOR YELLOW (YELLW/STRAW)
[2016-09-18] MEDS ORDERED: CIPR-9 PO (20:13)
[2016-09-18] MEDS ORDERED: CIPROFLOXACIN 500 MG TAB PO ONE (20:15)
--- NOTE | 2016-09-18 21:20 | EKG ---
Date Performed: 09/18/2016 Time Performed: 19:39:29 PTAGE: 60 years EKG: BASELINE ARTIFACT PRESENT. Unclear underlying rhythm MARKED RIGHT AXIS DEVIATION RIGHT BUND LE BRANCH BLOCK ABNORMAL ECG There is probably no significant change from prior electrocardiogram alt justine underlying rhythm is obscured by artifact. PREVIOUS TRACING : 07/11/2016 10.27 DOCTOR: Edgar Ferreira Interpretating Date/Time 09/18/2016 21:19:00
[2016-09-26] MEDS ORDERED: HUMALOG SQ (11:52)
== END 2016-09-18 21:00 | disposition home or self-care (01) ==
LOC: NEPE 16:25
DX: N39.0 Urinary tract infection, site not specified (principal); M79.601 Pain in right arm; R94.31 Abnormal electrocardiogram [ECG] [EKG]; B96.89 Other specified bacterial agents as the cause of diseases classified elsewhere; I50.9 Heart failure, unspecified; I10 Essential (primary) hypertension; Z72.0 Tobacco use; Z88.0 Allergy status to penicillin
CPT/HCPCS: 71010; 80053; 81001; 83605; 83690; 85025; 85610; 85730; 87040; 87086; 93005; 93971

== ENCOUNTER → 2016-09-26 | Outpatient (CLI) | payer MEDICARE, MEDICAID ==
[~2016-09-26] MED LIST changes: -ABIL5TAB6 PO; +CIPR-9 PO; +HUMALOG SQ; -ISOS30TA15 PO; +ISOS30TA3 PO; +LOPE7.5C PO; -ONDA1TAB16 PO; +ONDA1TAB17 PO; -TOPA25TA8 PO
[2016-09-26 12:00] LABS: HEMATOCRIT 38.8 % (35.0-46.0); MEAN CELL VOLUME 95.6 FL (80.0-100.0); MEAN CORPUSCULAR HEMOGLOBIN 31.7 PG (27.0-34.0); MEAN CORPUSCULAR HGB CONC 33.1 % (32.0-36.0); PLATELET COUNT 198 TH/MM3 (150-450); RED BLOOD COUNT 4.06 MIL/MM3 (4.00-5.30); RED CELL DISTRIBUTION WIDTH 14.7 % (11.6-17.2); REVIEW FLAG FINAL; WHITE BLOOD COUNT 9.6 TH/MM3 (4.0-11.0)
[2016-09-26 12:32] LABS: ALT (GPT) 19 U/L (10-53); ANION GAP 6 MEQ/L (5-15); AST (GOT) 14 U/L (15-37); BLOOD UREA NITROGEN 43 MG/DL (7-18); CHLORIDE 103 MEQ/L (98-107); GLOMERULAR FILTRATION RATE 38 ML/MIN (>89); GLUCOSE,FASTING 139 MG/DL (74-99); SODIUM (NA) 142 MEQ/L (136-145)
[2016-09-26 12:35] LABS: ALKALINE PHOSPHATASE 111 U/L (45-117); TOTAL BILIRUBIN ADULT 0.3 MG/DL (0.2-1.0)
== END ==
LOC: CPRE 11:25
PROVIDERS: ATTEND Surgery
DX: Z01.812 Encounter for preprocedural laboratory examination (principal); N18.6 End stage renal disease
CPT/HCPCS: 36415; 80053; 85027

== ENCOUNTER → 2016-09-30 | Day surgery (SDC) | payer MEDICARE, MEDICAID ==
[~2016-09-30] VITALS: Ht 162.6 cm; Wt 99.0 kg
[~2016-09-30] MED LIST changes: +*RESP: ALBUTEROL 2.5 MG/3 ML NEB (PRN) PERIprocedural Use ONLY NEB ONE; +*morphine SULFATE 8 MG/ML PERIprocedure ONLY ONE; +ACETAMINOPHEN/HYDROcodone 325 MG/5 MG TAB PO PRN; +BUPIVACAINE/EPINEPHRINE 0.5% PF 30 ML VIAL ONE; +DO NOT ADM ANY ANTICOAGULANT DRUGS PRN; +FAMOTIDINE 20 MG/2 ML VIAL ONE; +HEPARIN SODIUM - IV 10,000 UNITS/10 ML VIAL ONE; -KLON2TAB PO; +MAGNESIUM SULFATE 1 GM/100 ML IV PRN; +MORPHINE SULFATE 4 MG/ML INJ IV PRN; +NEOSTIGMINE 3 MG/3 ML SYR IV ONE; +ONDANSETRON HCL 4 MG/2 ML VIAL IV PUSH PRN; +PHENYLEPH/NS 1000 MCG/10 ML SYR IV ONE; +POTASSIUM CHLOR 20 MEQ 100 ML x 2 BAGS IV PRN; +POTASSIUM CHLOR 20 MEQ/100 ML x 1 BAG IV PRN; +PROPOFOL 200 MG/20 ML AMP IV ONE; +PROTAMINE SULFATE 50 MG/5 ML VIAL ONE; +SODIUM CHLORID 0.9% 500 ML INJ 500 ML IV ONE; +SODIUM CHLORIDE 0.9% FLUSH 10 ML FLUSH IV FLUSH PRN; +SODIUM CHLORIDE 0.9% FLUSH 10 ML FLUSH IV FLUSH SCH; +VANCOMYCIN HCL 1000 MG VIAL ONE; +ePHEDrine/NS 25 MG/5 ML SYR IV ONE; +fentaNYL CITRATE 250 MCG/5 ML AMP ONE
[2016-09-30 09:09] VITALS: BP 130/74; PULSE 68; RESP 22; TEMP 97.9; O2SAT 98
[2016-09-30 17:31] VITALS: BP 132/69; PULSE 74; RESP 18; TEMP 97.6; O2SAT 95
--- NOTE | 2016-09-30 17:35 | MP ---
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 SURGEON: Dr. Leblanc FLUIDS: 500 cc Crystalloid PROCEDURE: Right upper extremity basilic vein transposition. ANESTHESIA: General, 20 cc of 0.25% Marcaine with epinephrine. ESTIMATED BLOOD LOSS: Minimal URINE OUTPUT: Not calculated. COMPLICATIONS: None. DISPOSITION: To PACU. DESCRIPTION OF PROCEDURE: The patient's right upper extremity was prepped and draped in sterile fashion after getting one gram of vancomycin. I made an incision along the medial aspect of the right upper extremity with a scalpel and electrocautery. I did map out the basilic vein. There was a segment of approximately 5 cm of basilic vein that did not appear to be useable vein for anastomosis and it was probably the etiology for this slowly maturing fistula. I removed the side branches with 2-0 silk and medium and small clips as needed. I marked the vein anteriorly so that there would be no torsion of it. I divided it just distal to the anastomosis and used a 5-0 and BD1 in order to oversew my stump. I then irrigated the vein and removed the segment that was sclerotic. There was a clear transition on where the vein was able to dilate and knot. I then tunneled the vein with a April clamp from the upper part of my incision proximally to where I was going to perform my anastomosis. I isolated a segment of brachial artery. We did have a 5-0 bovine carotid that was opened. I thought I was going to have to use it as an interposition, although where my tunnel came in, I was able to have enough length based on the vein in order to perform an end-to-side anastomosis. I used a pediatric profunda clamp to control the proximal distal brachial artery and I did an end-to-side anastomosis with a 5-0 and a BD1. At the end of my anastomosis there was a good thrill in the vein and there were distal signals in the radial and ulnar distribution. I used Surgicel to help out with hemostasis and I closed the deep layer over the basilic vein with a 2-0 Vicryl absorbable suture and then I used a 3-0 running Vicryl, 4-0 Monocryl in order to close it appropriately with Dermabond for the skin. I did use 20 cc of 0.25% Marcaine with epinephrine in order to help out with anesthetizing the area. After we placed the dermabond, we used a Kerlix dressing over the right upper extremity. We checked again and there was indeed a thrill in the vessel. The patient tolerated the procedure well and was x-rayed at the end of the case. DO RIGOBERTO Rodarte/MARIA L /2:54 PM /4:57 PM
== END | disposition home or self-care (01) ==
LOC: HSDC 08:19
PROVIDERS: ATTEND Surgery
DX: T82.858A Stenosis of other vascular prosthetic devices, implants and grafts, initial encounter (principal); I12.0 Hypertensive chronic kidney disease with stage 5 chronic kidney disease or end stage renal disease; N18.6 End stage renal disease; E11.9 Type 2 diabetes mellitus without complications; J45.909 Unspecified asthma, uncomplicated; J44.9 Chronic obstructive pulmonary disease, unspecified; Z99.2 Dependence on renal dialysis
CPT/HCPCS: 01844; 36819; 76937; 86850; 86900; 86901; 94664; J1644; J2270; J2370; J2710; J3010; J3370; J7040; J7613; J2720